=== PATIENT | female | born 1935 | race Caucasian/White ===

== ENCOUNTER 2018-03-01 11:19 | Inpatient (IN) | payer OTHER ==
[~2018-03-01] VITALS: Ht 162.6 cm; Wt 94.5 kg
[~2018-03-01 11:19] MED LIST: ACET-1175 PO; AMOX500C3 PO; BISA10SU3 PR; CALCTAB13 PO; DRGTP75 TD; ENOX1INJ9 SQ; LCTS240 PO; LCTX PO; LISI-725 PO; METH500T PO; MOML PO; MULTTAB PO; NF656 TOP; POLY335040 PO; SENN-65 PO; SODIUM CHLORIDE 0.9% 1000ML 1,000 ML IV SCH; Thyroid PO; [UNRECOGNIZED DRUG - CODE] PO
--- NOTE | 2018-03-01 11:34 | DIAGNOSTIC IMAGING REPORT ---
CT OF THE HEAD WITHOUT CONTRAST CLINICAL HISTORY: Stroke alert. COMPARISON STUDY: No previous studies for comparison. CT DOSE: 537.48 mGy.cm TECHNIQUE: Helical axial images of the head were obtained without IV contrast. Automated exposure control was utilized for the study. A dose lowering technique was utilized adhering to the principles of ALARA. FINDINGS: No acute intracranial hemorrhage, midline shift or mass effect is present. Ventricular system is unremarkable. Basilar cisterns are patent. There are no extra-axial collections. There is equivocal loss of pierson-white differentiation within the right temporal lobe shown on axial image 14. This is probably artifactual. There are no significant calvarial abnormalities. A small air-fluid level within the right sphenoid sinus is noted. Mastoid air cells are clear. IMPRESSION: 1. No acute intracranial hemorrhage or mass effect. 2. Equivocal loss of pierson-white differentiation within the right temporal lobe. This is likely artifactual however an acute infarct could appear similar. Findings discussed with Dr. Thornton at time of dictation. Electronically signed by: Ubaldo Ulrich M.D. 03/01/2018 11:32 AM Dictated Date/Time: 03/01/2018 11:26 AM
[2018-03-01 11:42] LABS: BASO % 0.1 %; BASO ABS # 0.01 K/uL (0-0.2); EOS % 1.9 %; EOS ABS # 0.19 K/uL (0-0.5); HEMATOCRIT 41.2 % (37-47); HEMOGLOBIN 14.5 g/dL (12.0-16.0); IG# 0.03 K/uL (0.00-0.02); LYMPH % 8.9 %; LYMPH ABS # 0.89 K/uL (1.2-3.4); MEAN CELL VOLUME 97.2 fL (80-100); MEAN CORPUSCULAR HEMOGLOBIN 34.2 pg (25-34); MEAN CORPUSCULAR HGB CONC 35.2 g/dl (32-36); MONO % 6.9 %; MONO ABS # 0.69 K/uL (0.11-0.59); NEUT % 81.9 %; NEUT ABS # 8.22 K/uL (1.4-6.5); PLATELET COUNT 196 K/uL (130-400); RED CELL DISTRIBUTION WIDTH CV 13.6 % (11.5-14.5); WHITE BLOOD COUNT 10.03 K/uL (4.8-10.8)
--- NOTE | 2018-03-01 11:47 | EMERGENCY ROOM VISIT NOTE ---
History Report prepared by Navya: Bobby Murphy Under the Supervision of: Dr. Yasmeen Thornton M.D. First contact with patient: 11:16 Stated Complaint: POSS CVA History of Present Illness The patient is an 82 year old female who presents to the Emergency Room with complaints of a mild headache and weakness that began at 0800 this morning, 3.5 hours ago. Per EMS, the patient is currently a resident at [facility] and began to complain of a mild headache this morning at 0800. She then went to her normal therapy session and was not performing her exercises as well as she normally would. The patient had a stroke in January, which is why she is staying at [facility]. Source of History: patient Onset: 3.5 hours ago Position: head Symptom Intensity: mild Quality: other (headache) Associated Symptoms: + weakness Review of Systems See HPI for pertinent positives & negatives. A total of 10 systems reviewed and were otherwise negative. 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 Social History Smoking Status: Never Smoker Smokeless Tobacco Use: No Alcohol Use: none Marital Status: in relationship Housing Status: lives with significant other Occupation Status: retired Current/Historical Medications Scheduled Amitriptyline Hcl (Elavil), 75 MG PO HS Aspirin-Dipyridamole (Aspirin/Dipyridamole 25-200 mg), 1 CAP PO Q12 Atorvastatin (Lipitor), 1 TAB PO HS Docusate Sodium (Docusate Sodium), 1 CAP PO BID Donepezil Hydrochloride (Donepezil Hcl), 10 MG PO QPM Fluticasone Propionate (Nasal) (Flonase Allergy Relief), 2 SPRAYS NA DAILY Latanoprost (Xalatan 0.005% Oph Oliva), 1 DROPS OP HS Levothyroxine Sodium (Levothyroxine Sodium), 1 TAB PO DAILY Lisinopril (Lisinopril), 20 MG DAILY Memantine (Namenda), 10 MG PO BID Multivitamin (Multivitamin), 1 TAB PO DAILY Nystatin (Topical) (Nystatin), 1 APPLN TD BID Pantoprazole (Protonix), 40 MG PO DAILY Polyethylene Glycol 3350 (Miralax), 17 GM PO BID Potassium Chloride (Potassium Chloride Er), 1 CAP PO BID Sennosides-Docusate Sodium (Docusate Sodium/Senna), 1 TAB PO DAILYBL Sertraline (Zoloft), 100 MG PO DAILY Scheduled PRN Acetaminophen (Acetaminophen), 1 TAB PO Q4H PRN for Pain Bisacodyl (Bisacodyl), 10 MG RE DAILY PRN for Constipation Lorazepam (Lorazepam), 1 TAB PO TID PRN for Anxiety Magnesium Hydroxide (Milk Of Magnesia), 30 ML PO DAILY PRN for Constipation Ondansetron Hcl (Zofran), 4 MG PO Q6H PRN for Nausea Sodium Phosphates (Fleet Enema Six Pack), 1 DOSE RE DAILY PRN for Constipation Allergies Coded Allergies: Azithromycin (Unverified Adverse Reaction, Unknown, nausea and vomiting, ) Erythromycin (Unverified Adverse Reaction, Unknown, Vomiting., 03/01/18) Uncoded Allergies: NARCOTIC ANALGESICS (Adverse Reaction, Unknown, nausea and vomiting, ) Physical Exam Vital Signs Date Time Temp Pulse Resp B/P (MAP) Pulse Ox O2 Delivery O2 Flow Rate FiO2 03/01/18 11:53 67 16 138/75 95 Room Air 03/01/18 11:38 130 03/01/18 11:27 37.1 86 18 156/78 94 Room Air 03/01/18 11:27 94 Room Air Physical Exam Vital signs reviewed. General: Well-appearing 82 yo female, in no significant distress. HEENT: No scleral icterus, PERRLA, neck supple. Atraumatic. Cardiovascular: Regular rate and rhythm, no extra sounds. Pulmonary: Clear to auscultation bilaterally, normal work of breathing. Abdomen: Soft, nontender, nondistended, positive bowel sounds. Musculoskeletal: Atraumatic, no peripheral edema. Neurologic: Patient awake alert and oriented x 3, full strength in all 4 extremities. Cranial nerves 2 through 12 grossly intact. There is mild ataxia to the left upper extremity with mild left nasal labial fold flattening. Skin: Warm, dry, no rash mild Medical Decision & Procedures ER Provider Diagnostic Interpretation: Radiology results as stated below per my review and radiologist interpretation: CTA ANGIOGRAPHY OF THE HEAD CLINICAL HISTORY: Stroke alert. COMPARISON STUDY: Head CT March 01, 2018 at 11:24 AM. TECHNIQUE: Helical axial images of the head were obtained following uneventful intravenous administration of 94 cc of Optiray 320. A dose lowering technique was utilized adhering to the principles of ALARA. CT DOSE: 368.80 mGycm FINDINGS: No acute intracranial hemorrhage, midline shift or mass effect is present. No intracranial aneurysm or dissection is identified. There is moderate calcified plaque within the bilateral cavernous and supraclinoid internal carotid arteries with moderate stenosis of the right supraclinoid ICA and mild to moderate stenosis of the left supraclinoid ICA. No abrupt vessel cut off is identified. No intraluminal thrombus is identified. There is moderate stenosis of the distal right middle cerebral artery. Small air-fluid level within the right sphenoid sinus is noted. IMPRESSION: 1. No intracranial aneurysm or abrupt vessel cut off identified. No intraluminal thrombus. 2. Moderate intracranial vascular calcification with multifocal stenoses, as described above. Electronically signed by: Ubaldo Ulrich M.D. 03/01/2018 12:18 PM Dictated Date/Time: 03/01/2018 12:10 PM CHEST ONE VIEW PORTABLE CLINICAL HISTORY: Stroke COMPARISON STUDY: No previous studies for comparison. FINDINGS: Lung volumes are normal. No pneumothorax or pleural effusion is noted. There is no evidence for pulmonary edema. Cardiomediastinal silhouette is unremarkable. A 2.1 cm right suprahilar density is noted. This is likely due to summation artifact. IMPRESSION: 1. No acute cardiopulmonary findings. 2. 2.1 cm right suprahilar density which is artifactual. Nonemergent PA and shallow oblique radiographs of the chest are recommended. Electronically signed by: Ubaldo Ulrich M.D. 03/01/2018 12:00 PM Dictated Date/Time: 03/01/2018 11:[address] OF THE HEAD WITHOUT CONTRAST CLINICAL HISTORY: Stroke alert. COMPARISON STUDY: No previous studies for comparison. CT DOSE: 537.48 mGy.cm TECHNIQUE: Helical axial images of the head were obtained without IV contrast. Automated exposure control was utilized for the study. A dose lowering technique was utilized adhering to the principles of ALARA. FINDINGS: No acute intracranial hemorrhage, midline shift or mass effect is present. Ventricular system is unremarkable. Basilar cisterns are patent. There are no extra-axial collections. There is equivocal loss of pierson-white differentiation within the right temporal lobe shown on axial image 14. This is probably artifactual. There are no significant calvarial abnormalities. A small air-fluid level within the right sphenoid sinus is noted. Mastoid air cells are clear. IMPRESSION: 1. No acute intracranial hemorrhage or mass effect. 2. Equivocal loss of pierson-white differentiation within the right temporal lobe. This is likely artifactual however an acute infarct could appear similar. Findings discussed with Dr. Thornton at time of dictation. Electronically signed by: Ubaldo Ulrich M.D. 03/01/2018 11:32 AM Dictated Date/Time: 03/01/2018 11:26 AM Laboratory Results Test 03/01/18 11:27 03/01/18 11:28 03/01/18 11:32 03/01/18 11:37 RDW Standard Deviation 48.0 fL (36.4-46.3) RDW Coefficient of Variation 13.6 % (11.5-14.5) White Blood Count 10.03 K/uL (4.8-10.8) Red Blood Count 4.24 M/uL (4.2-5.4) Hemoglobin 14.5 g/dL (12.0-16.0) Hematocrit 41.2 % (37-47) Mean Corpuscular Volume 97.2 fL (80-100) Mean Corpuscular Hemoglobin 34.2 pg (25-34) Mean Corpuscular Hemoglobin Concent 35.2 g/dl (32-36) Platelet Count 196 K/uL (130-400) Mean Platelet Volume 9.0 fL (7.4-10.4) Neutrophils (%) (Auto) 81.9 % Lymphocytes (%) (Auto) 8.9 % Monocytes (%) (Auto) 6.9 % Eosinophils (%) (Auto) 1.9 % Basophils (%) (Auto) 0.1 % Neutrophils # (Auto) 8.22 K/uL (1.4-6.5) Lymphocytes # (Auto) 0.89 K/uL (1.2-3.4) Monocytes # (Auto) 0.69 K/uL (0.11-0.59) Eosinophils # (Auto) 0.19 K/uL (0-0.5) Basophils # (Auto) 0.01 K/uL (0-0.2) Prothrombin Time 10.7 SECONDS (9.0-12.0) Prothromb Time International Ratio 1.0 (0.9-1.1) Activated Partial Thromboplast Time 27.3 SECONDS (21.0-31.0) Partial Thromboplastin Ratio 1.1 Estimated Average Glucose 111 mg/dl Hemoglobin A1c 5.5 % (4.5-5.6) Magnesium Level 2.1 mg/dl (1.8-2.4) Total Creatine Kinase 46 U/L (26-192) Creatine Kinase MB 1.1 ng/ml (0.5-3.6) Creatine Kinase MB Ratio 2.4 (0-3.0) Troponin I < 0.015 ng/ml (0-0.045) Bedside Prothrombin Time INR 1.0 (0.9-1.1) Bedside Glucose 83 mg/dl (70-90) Bedside Hemoglobin 14.6 g/dl (12.0-16.0) Bedside Hematocrit 43 % (37-47) Bedside Sodium 133 mEq/L (135-144) Bedside Potassium 4.6 mEq/L (3.3-5.0) Bedside Chloride 94 mEq/L (101-112) Bedside Total CO2 29 mEq/l (24-31) Bedside Blood Urea Nitrogen 26 mg/dl (7-18) Bedside Creatinine 1.2 mg/dl (0.6-1.3) Bedside Glucose (other) 85 mg/dl (70-99) Bedside Ionized Calcium (Deandra) 1.16 mmol/l (1.12-1.32) Test 03/01/18 13:00 Urine Color YELLOW Urine Appearance CLEAR (CLEAR) Urine pH 6.5 (4.5-7.5) Urine Specific [place] 1.029 (1.000-1.030) Urine Protein NEG (NEG) Urine Glucose (UA) NEG (NEG) Urine Ketones NEG (NEG) Urine Occult Blood NEG (NEG) Urine Nitrite NEG (NEG) Urine Bilirubin NEG (NEG) Urine Urobilinogen NEG (NEG) Urine Leukocyte Esterase MODERATE (NEG) Urine WBC (Auto) >30 /hpf (0-5) Urine RBC (Auto) 0-4 /hpf (0-4) Urine Hyaline Casts (Auto) 1-5 /lpf (0-5) Urine Epithelial Cells (Auto) 0-5 /lpf (0-5) Urine Bacteria (Auto) NEG (NEG) Date/Time Source Procedure Growth Status 03/01/18 13:00 Urine,Catheterized Urine Culture - Final Enterococcus Faecalis Complete Laboratory results per my review. Medications Administered Medications (Trade) Dose Ordered Sig/Marcel Route Start Time Stop Time Status Last Admin Dose Admin Sodium Chloride 1,000 ml @ 100 mls/hr Q10H IV 03/01/18 11:17 03/01/18 14:54 DC 03/01/18 11:17 100 MLS/HR Acetaminophen (Tylenol Tab) 1,000 mg NOW STAT PO 03/01/18 12:50 03/01/18 12:51 DC 03/01/18 12:50 1,000 MG ECG Per My Interpretation Indication: weakness Rate (beats per minute): 70 Rhythm: normal sinus Findings: Q waves (Anterior inferior), no acute ischemic change ED Course 1117: Ordered Sodium Chloride 1000 mL @ 100 mL/hr IV. 1126: Past medical records reviewed. The patient was evaluated in room B1. A complete history and physical examination was performed. 1250: Ordered Acetaminophen 1000 mg PO. 1254: I discussed the case with Dr. Korey Corcoran Hospitalist. She will evaluate the patient for further treatment. Medical Decision Differential diagnosis: Etiologies such as metabolic, infection, hypo/hyperglycemia, electrolyte abnormalities, cardiac sources, intracerebral event, toxicologic, neurologic, as well as others were entertained. This pt was evaluated and appeared to be in no distress. IV access was obtained and lab work was drawn. 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 Neuro exam reveals a mild ataxia to the LUE, ? nasolabial fold flattening. IVF were initiated. Records from OSH were obtained. The pt's symptoms are not clearly new today. There is no significant deficit. EKG reveals a NSR. IVF were initiated, pt was given po tylenol for HERCULES. Pt was doing well on exam. There is no evidence fo acute stroke on CT, ? artifact. Pt was d/w the hospitalist service for further management. Medication Reconcilliation Current Medication List: was personally reviewed by me Blood Pressure Screening Patient's blood pressure: Elevated blood pressure Consults Time Called: 1251 Consulting Physician: Dr. Korey Ware Hospitalist Returned Call: [phone] I discussed the case with Dr. Korey Ware Hospitalist. She will evaluate the patient for further treatment. Impression Primary Impression: Stroke-like symptom Scribe Attestation The scribe's documentation has been prepared under my direction and personally reviewed by me in its entirety. I confirm that the note above accurately reflects all work, treatment, procedures, and medical decision making performed by me. Departure Information Dispostion Being Evaluated By Hospitalist Referrals No Doctor, Assigned (PCP)
[2018-03-01 11:52] LABS: ISTAT CREATININE 1.2 mg/dl (0.6-1.3); ISTAT IONIZED CALCIUM 1.16 mmol/l (1.12-1.32); ISTAT POTASSIUM 4.6 mEq/L (3.3-5.0)
[2018-03-01 11:55] LABS: PTT PATIENT 27.3 SECONDS (21.0-31.0)
[2018-03-01 11:59] LABS: BLOOD UREA NITROGEN 22 mg/dl (7-18); CALCIUM 8.9 mg/dl (8.5-10.1); CARBON DIOXIDE 30 mmol/L (21-32); CREATININE 1.29 mg/dl (0.60-1.20); GLUCOSE 79 mg/dl (70-99); POTASSIUM 4.5 mmol/L (3.5-5.1); SODIUM 132 mmol/L (136-145)
[2018-03-01] MEDS ORDERED: OPTIRAY 320 IV PRN (12:00)
--- NOTE | 2018-03-01 12:02 | DIAGNOSTIC IMAGING REPORT ---
CHEST ONE VIEW PORTABLE CLINICAL HISTORY: Stroke COMPARISON STUDY: No previous studies for comparison. FINDINGS: Lung volumes are normal. No pneumothorax or pleural effusion is noted. There is no evidence for pulmonary edema. Cardiomediastinal silhouette is unremarkable. A 2.1 cm right suprahilar density is noted. This is likely due to summation artifact. IMPRESSION: 1. No acute cardiopulmonary findings. 2. 2.1 cm right suprahilar density which is artifactual. Nonemergent PA and shallow oblique radiographs of the chest are recommended. Electronically signed by: Ubaldo Ulrich M.D. 03/01/2018 12:00 PM Dictated Date/Time: 03/01/2018 11:59 AM
[2018-03-01 12:04] LABS: CKMB 1.1 ng/ml (0.5-3.6)
--- NOTE | 2018-03-01 12:20 | DIAGNOSTIC IMAGING REPORT ---
CTA ANGIOGRAPHY OF THE HEAD CLINICAL HISTORY: Stroke alert. COMPARISON STUDY: Head CT March 01, 2018 at 11:24 AM. TECHNIQUE: Helical axial images of the head were obtained following uneventful intravenous administration of 94 cc of Optiray 320. A dose lowering technique was utilized adhering to the principles of ALARA. CT DOSE: 368.80 mGycm FINDINGS: No acute intracranial hemorrhage, midline shift or mass effect is present. No intracranial aneurysm or dissection is identified. There is moderate calcified plaque within the bilateral cavernous and supraclinoid internal carotid arteries with moderate stenosis of the right supraclinoid ICA and mild to moderate stenosis of the left supraclinoid ICA. No abrupt vessel cut off is identified. No intraluminal thrombus is identified. There is moderate stenosis of the distal right middle cerebral artery. Small air-fluid level within the right sphenoid sinus is noted. IMPRESSION: 1. No intracranial aneurysm or abrupt vessel cut off identified. No intraluminal thrombus. 2. Moderate intracranial vascular calcification with multifocal stenoses, as described above. Electronically signed by: Ubaldo Ulrich M.D. 03/01/2018 12:18 PM Dictated Date/Time: 03/01/2018 12:10 PM
[2018-03-01] MEDS ORDERED: ACETAMINOPHEN 500 MG TAB PO STA (12:50)
[2018-03-01] MEDS ORDERED: LEVO25TA5 PO (13:04)
[2018-03-01] MEDS ORDERED: DONE5TAB26 PO (13:04)
[2018-03-01] MEDS ORDERED: AMT50 PO (13:04)
[2018-03-01] MEDS ORDERED: LATA0.5S OP (13:04)
[2018-03-01] MEDS ORDERED: FLVHFA110 INH (13:04)
[2018-03-01] MEDS ORDERED: ASPI1CAP2 PO (13:04)
[2018-03-01] MEDS ORDERED: ATOR-24 PO (13:04)
[2018-03-01] MEDS ORDERED: NMN10 PO (13:04)
[2018-03-01] MEDS ORDERED: MULT-506 PO (13:04)
[2018-03-01] MEDS ORDERED: MELO7.5T5 PO (13:04)
[2018-03-01] MEDS ORDERED: PANT40TA PO (13:04)
[2018-03-01] MEDS ORDERED: LSN20 (13:04)
[2018-03-01] MEDS ORDERED: DOCU100C31 PO (13:04)
[2018-03-01] MEDS ORDERED: ACETAMINOPHEN 325 MG TAB PO PRN (14:00)
[2018-03-01] MEDS ORDERED: ONDANSETRON INJ 2 MG/ML 2 ML VIAL IV PRN (14:00)
[2018-03-01] MEDS ORDERED: PHARMACIST DISCHARGE MED REC CONSULT PRN (14:15)
[2018-03-01] MEDS ORDERED: CLOPIDOGREL BISULFATE 75 MG TAB PO SCH (14:15)
[2018-03-01] MEDS ORDERED: POTA1CAP2 PO (14:29)
[2018-03-01] MEDS ORDERED: ONDA4TAB65 PO (14:29)
[2018-03-01] MEDS ORDERED: SERT-234 PO (14:29)
[2018-03-01] MEDS ORDERED: BISA10SU5 RE (14:29)
[2018-03-01] MEDS ORDERED: NYST100033 TD (14:29)
[2018-03-01] MEDS ORDERED: POLY335019 PO (14:29)
[2018-03-01] MEDS ORDERED: LORA0.5T12 PO (14:29)
[2018-03-01] MEDS ORDERED: MOML PO (14:29)
[2018-03-01] MEDS ORDERED: ACET500T58 PO (14:29)
[2018-03-01] MEDS ORDERED: SODI1ENE RE (14:29)
[2018-03-01] MEDS ORDERED: SENN8.6T36 PO (14:29)
[2018-03-01] MEDS ORDERED: FLUT0.15 (14:31)
[2018-03-01 14:55] VITALS: BP 136/76; PULSE 66; TEMP 36.6; O2SAT 96
[2018-03-01 15:02] VITALS: BP 136/76; PULSE 66; TEMP 36.6; Ht 162.6 cm; Wt 94.5 kg
--- NOTE | 2018-03-01 15:48 | Neurology Consultation ---
Neurology Consultation Date of Consultation: Mar 01, 2018. Attending Physician: Davion Ashraf M.D. Primary Care Physician: Monica XiePBingABing Reason for Consultation: LLE weakness History of Present Illness Source: patient, family (daughter) Elise is an 82 year old female with dementia, depression, anxiety, HTN, stage III CKD, morbid obesity who presented to [facility] with weakness and change in speech and confusion. She lives alone and has aids coming into assist her. She states she was trying to get OOB 02/08/2018 and slid to the floor and couldn't get up. She was taken to [facility] and it was discovered she had a right thalamus stroke. She was started on avonex and was cleared for rehab. She was accepted for acute rehab at [facility] and was doing well and again walking with a walker. Today she was having some difficulty with her therapy and was sent to [facility] for evaluation. Currently she is doing fine her daughter is in the room with her and states she has some word finding difficulty at baseline but she was having some slurring of speech when she had the stroke and left UE/LE weakness. She is pleasant but somewhat confused as to why she is here. denies CP, SOB, abdominal pain, one sided weakness, numbness tingling, N, V, headaches vision changes. Social History Smoking Status: Never smoker Smokeless Tobacco Use: No Allergies Coded Allergies: Azithromycin (Unverified Adverse Reaction, Unknown, nausea and vomiting, ) Erythromycin (Unverified Adverse Reaction, Unknown, Vomiting., 03/01/18) Uncoded Allergies: NARCOTIC ANALGESICS (Adverse Reaction, Unknown, nausea and vomiting, ) Current Inpatient Medications Current Inpatient Medications Medications (Trade) Dose Ordered Sig/Marcel Route Start Time Stop Time Status Last Admin Dose Admin Ioversol (Optiray 320) 100 ml UD PRN IV 03/01/18 12:00 03/05/18 11:59 Heparin Sodium (Porcine) (Heparin Sq 5000 Unit/0.5ml) 5,000 unit Q8 SQ 03/01/18 14:00 03/31/18 13:59 Acetaminophen (Tylenol Tab) 650 mg Q4H PRN PO 03/01/18 14:00 03/31/18 13:59 Ondansetron HCl (Zofran Inj) 4 mg Q6H PRN IV 03/01/18 14:00 03/31/18 13:59 Aspirin (Ecotrin Tab) 81 mg QAM PO 03/02/18 09:00 04/01/18 08:59 Clopidogrel Bisulfate (plAVix TAB) 75 mg QAM PO 03/01/18 14:15 03/31/18 14:14 Miscellaneous Information (Pharmacist Discharge Med Rec Consult) 1 ea UD PRN N/A 03/01/18 14:15 03/31/18 14:14 Amitriptyline HCl (Elavil Tab) 75 mg HS PO 03/01/18 21:00 03/31/18 20:59 Atorvastatin Calcium (Lipitor Tab) 40 mg HS PO 03/01/18 21:00 03/31/18 20:59 Docusate Sodium (coLACE CAP) 100 mg BID PO 03/01/18 21:00 03/31/18 20:59 Donepezil HCl (Aricept Tab) 10 mg QPM PO 03/01/18 21:00 03/31/18 20:59 Levothyroxine Sodium (Synthroid Tab) 25 mcg DAILYBB PO 03/02/18 06:00 04/01/18 05:59 Lisinopril (Zestril Tab) 20 mg DAILY PO 03/02/18 09:00 04/01/18 08:59 Memantine (Namenda Tab) 10 mg BID PO 03/01/18 21:00 03/31/18 20:59 Multivitamins (Multivitamin Tab) 1 tab DAILY PO 03/02/18 09:00 04/01/18 08:59 Nystatin (Mycostatin Powder) 1 appln BID EXT 03/01/18 21:00 03/31/18 20:59 Pantoprazole Sodium (Protonix Tab) 40 mg DAILY PO 03/02/18 09:00 04/01/18 08:59 Senna/Docusate Sodium (Senokot S Tab) 1 tab DAILYBL PO 03/02/18 11:00 04/01/18 10:59 Sertraline HCl (Zoloft Tab) 100 mg DAILY PO 03/02/18 09:00 04/01/18 08:59 Polyethylene (Miralax Powder Packet) 17 gm BID PO 03/01/18 21:00 03/31/18 20:59 Potassium Chloride (Klor-Con M10) 10 meq BID PO 03/01/18 21:00 03/31/18 20:59 Physical Exam Vital Signs (Past 24 Hrs): Date Time Temp Pulse Resp B/P (MAP) Pulse Ox O2 Delivery O2 Flow Rate FiO2 03/01/18 14:55 36.6 66 18 136/76 (96) 96 Room Air 03/01/18 13:30 68 149/76 95 03/01/18 11:53 67 16 138/75 95 Room Air 03/01/18 11:38 130 03/01/18 11:27 37.1 86 18 156/78 94 Room Air 03/01/18 11:27 94 Room Air Physical Exam: Constitutional: appearance nourished, healthy and obese Ears, Nose, Mouth and Throat: mucous membranes moist, no injection and skin normal, eyes normal Cardiovascular: normal S-1 and S-2 and regular rate and rhythm Respiratory: clear to auscultation (CTA) and no rales, rhonchi or wheeze Musculoskeletal: none pitting peripheral edema, Skin: no stigmata of neurocutaneous disease noted and normal and intact Eyes: extraocular muscles intact (EOMI) and pupils equal, round and reactive to light (PERRL) NEUROLOGIC EXAMINATION: Mental status: Alert and interactive Oriented does not know the date, who is president or why she is here Oriented to person Speech dysarthria , can say no ifs ands or buts, can stick out tongue close eye and point to ceiling with right arm Cranial Nerves some nasolabial flattening on the left Reflexes: Deep tendon reflexes were symmetrical and graded 2/5. Plantar responses neutral Sensory: intact to cool and light touch, GT proprioception in tact Coordination: finger to nose with no bi pass, heel to ibrahim not dysmetric Gait/Stance: Posture sitting up in bed Motor: Negative for pronator drift of out stretched arms with eyes closed. 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 deltoids, hand chief procurement officer intrinsics 5/5 bilaterally hip flex plantar flex ext bilaterally 5/5 Laboratory Results Past 24 Hours: 03/01/18 11:27 Red Blood Count 4.24, Mean Corpuscular Volume 97.2, Mean Corpuscular Hemoglobin 34.2, Mean Corpuscular Hemoglobin Concent 35.2, Mean Platelet Volume 9.0, Neutrophils (%) (Auto) 81.9, Lymphocytes (%) (Auto) 8.9, Monocytes (%) (Auto) 6.9, Eosinophils (%) (Auto) 1.9, Basophils (%) (Auto) 0.1, Neutrophils # (Auto) 8.22, Lymphocytes # (Auto) 0.89, Monocytes # (Auto) 0.69, Eosinophils # (Auto) 0.19, Basophils # (Auto) 0.01 03/01/18 11:27 Test 03/01/18 11:27 03/01/18 11:28 03/01/18 11:32 03/01/18 11:37 White Blood Count 10.03 K/uL (4.8-10.8) Red Blood Count 4.24 M/uL (4.2-5.4) Hemoglobin 14.5 g/dL (12.0-16.0) Hematocrit 41.2 % (37-47) Mean Corpuscular Volume 97.2 fL (80-100) Mean Corpuscular Hemoglobin 34.2 pg (25-34) Mean Corpuscular Hemoglobin Concent 35.2 g/dl (32-36) Platelet Count 196 K/uL (130-400) Mean Platelet Volume 9.0 fL (7.4-10.4) Neutrophils (%) (Auto) 81.9 % Lymphocytes (%) (Auto) 8.9 % Monocytes (%) (Auto) 6.9 % Eosinophils (%) (Auto) 1.9 % Basophils (%) (Auto) 0.1 % Neutrophils # (Auto) 8.22 K/uL (1.4-6.5) Lymphocytes # (Auto) 0.89 K/uL (1.2-3.4) Monocytes # (Auto) 0.69 K/uL (0.11-0.59) Eosinophils # (Auto) 0.19 K/uL (0-0.5) Basophils # (Auto) 0.01 K/uL (0-0.2) RDW Standard Deviation 48.0 fL (36.4-46.3) RDW Coefficient of Variation 13.6 % (11.5-14.5) Immature Granulocyte % (Auto) 0.3 % Immature Granulocyte # (Auto) 0.03 K/uL (0.00-0.02) Prothrombin Time 10.7 SECONDS (9.0-12.0) Prothromb Time International Ratio 1.0 (0.9-1.1) Activated Partial Thromboplast Time 27.3 SECONDS (21.0-31.0) Partial Thromboplastin Ratio 1.1 Est Creatinine Clear Calc Drug Dose 39.4 ml/min Estimated GFR () 44.7 Estimated GFR (Non- 38.5 BUN/Creatinine Ratio 17.3 (10-20) Calcium Level 8.9 mg/dl (8.5-10.1) Magnesium Level 2.1 mg/dl (1.8-2.4) Total Creatine Kinase 46 U/L (26-192) Creatine Kinase MB 1.1 ng/ml (0.5-3.6) Creatine Kinase MB Ratio 2.4 (0-3.0) Troponin I < 0.015 ng/ml (0-0.045) Bedside Prothrombin Time INR 1.0 (0.9-1.1) Bedside Glucose 83 mg/dl (70-90) Bedside Hemoglobin 14.6 g/dl (12.0-16.0) Bedside Hematocrit 43 % (37-47) Bedside Sodium 133 mEq/L (135-144) Bedside Potassium 4.6 mEq/L (3.3-5.0) Bedside Chloride 94 mEq/L (101-112) Bedside Total CO2 29 mEq/l (24-31) Anion Gap 15.0 mmol/L (16-25) Bedside Blood Urea Nitrogen 26 mg/dl (7-18) Bedside Creatinine 1.2 mg/dl (0.6-1.3) Bedside Glucose (other) 85 mg/dl (70-99) Bedside Ionized Calcium (Deandra) 1.16 mmol/l (1.12-1.32) Test 03/01/18 13:00 Urine Color YELLOW Urine Appearance CLEAR (CLEAR) Urine pH 6.5 (4.5-7.5) Urine Specific [place] 1.029 (1.000-1.030) Urine Protein NEG (NEG) Urine Glucose (UA) NEG (NEG) Urine Ketones NEG (NEG) Urine Occult Blood NEG (NEG) Urine Nitrite NEG (NEG) Urine Bilirubin NEG (NEG) Urine Urobilinogen NEG (NEG) Urine Leukocyte Esterase MODERATE (NEG) Urine WBC (Auto) >30 /hpf (0-5) Urine RBC (Auto) 0-4 /hpf (0-4) Urine Hyaline Casts (Auto) 1-5 /lpf (0-5) Urine Epithelial Cells (Auto) 0-5 /lpf (0-5) Urine Bacteria (Auto) NEG (NEG) Imaging CT head- . No acute intracranial hemorrhage or mass effect. Equivocal loss of pierson-white differentiation within the right temporal lobe. This is likely artifactual however an acute infarct could appear similar. Impression 82 year old female right thalamic stroke at [facility] with new weakness Plan 1. MRI combo for better definition of new stroke symptoms 2. PT/OT for discharge needs 3. HTN, DL, DM optimize with consideration of age 4. carotid and TTE done at [facility] 5. fall precautions 6. baseline dementia will need close observation 7. care mgt will need to intervene with safe discharge 8. stop aggrenox and start plavix 75 mg and aspirin 81 mg daily, recommend dual therapy for 3 months and then stop aspirin and continue plavix for a lifetime. neurology in 2-3 weeks after discharge from rehab or hospital Dr Davion Celaya PAC schedule Patient seen and examined images reviewed this is a woman with dementia whose mental status is colored by this and apparently had an acute right thalamic infarction in february that may hav produced a left hemisyndrome and cognitive worsening and is on aggrenox Had a headache and malaise today and may have had worsening of the left sided weakness and ct imaging is vague but there may be a right tempral infarct Exam not helpful as she is confused and I find minimal if any weakness on the left We are recommending an mri to clear the air diagnostically and stop the aggrenox as the headache could be inpart due to the persantine component and go with plavix and asa we will follow up imaging and clinical state tomorrow Davion Mathews MD
[2018-03-01 16:03] VITALS: BP 128/72; PULSE 66; TEMP 36.6; O2SAT 96
--- NOTE | 2018-03-01 16:58 | History and Physical ---
History & Physical Date & Time of Service: Mar 01, 2018 ~ 13:30 Chief Complaint: Left-sided weakness Primary Care Physician: Monica XiePBingA. History of Present Illness 82-year-old female who presents the ED with left-sided weakness and speech difficulties. Patient was admitted to [facility] 02/08 through 02/10 after she had slid out of bed onto the floor. While admitted she was found to have an acute right thalamic infarct. Patient was started on Aggrenox and discharged to [facility] for further rehab. Patient reports she has been doing well since at [facility]. She feels that yesterday her left-sided weakness was little worse than normal. This morning whenever she woke up she felt like she was in her usual state of health. However during therapy the therapist noted that she was having some more difficulty with her left side and her speech was more garbled than it had been. She was also complaining of a frontal headache. Patient was sent to the ER for further evaluation. Patient denies any other associated symptoms. No chest pain or shortness of breath. She denies lightheadedness, dizziness, diaphoresis, or syncopal events. No fevers or chills. She denies abdominal pain, nausea, vomiting, diarrhea. No urinary symptoms. In the ED, patient head CT is negative for acute findings. Labs are unremarkable. Patient was given 1 L IVF and Tylenol. Past Medical/Surgical History Medical Problems: (1) Anxiety Status: Chronic (2) CKD (chronic kidney disease), stage III Status: Chronic (3) Dementia Status: Chronic (4) Depression Status: Chronic (5) Diastolic dysfunction Status: Chronic (6) GERD (gastroesophageal reflux disease) Status: Chronic (7) Hyperlipidemia Status: Chronic (8) Hypertension Status: Chronic (9) Hypothyroidism Status: Chronic (10) Thalamic infarction Status: Chronic Surgical Problems: (1) H/O dilation and curettage Status: Chronic (2) H/O ovarian cystectomy Status: Chronic (3) H/O tubal ligation Status: Chronic (4) History of carpal tunnel surgery Status: Chronic (5) History of cataract surgery Status: Chronic (6) History of hysterectomy Status: Chronic (7) History of tonsillectomy and adenoidectomy Status: Chronic (8) Hx of appendectomy Status: Chronic (9) S/P lumbar spinal fusion Status: Chronic Family History Noncontributory secondary to patient's advanced age Social History Smoking Status: Never Smoker Smokeless Tobacco Use: No Immunizations History of Influenza Vaccine: Yes Influenza Vaccine Date: Aug 05, 2017 History of Tetanus Vaccine?: Yes Tetanus Immunization Date: Feb 04, 1960 History of Pneumococcal: Yes Pneumococcal Date: Aug 03, 2016 Allergies Coded Allergies: Azithromycin (Unverified Adverse Reaction, Unknown, nausea and vomiting, ) Erythromycin (Unverified Adverse Reaction, Unknown, Vomiting., 03/01/18) Uncoded Allergies: NARCOTIC ANALGESICS (Adverse Reaction, Unknown, nausea and vomiting, ) Home Medications Scheduled Amitriptyline Hcl (Elavil), 75 MG PO HS Aspirin-Dipyridamole (Aspirin/Dipyridamole 25-200 mg), 1 CAP PO Q12 Atorvastatin (Lipitor), 1 TAB PO HS Docusate Sodium (Docusate Sodium), 1 CAP PO BID Donepezil Hydrochloride (Donepezil Hcl), 10 MG PO QPM Fluticasone Propionate (Nasal) (Flonase Allergy Relief), 2 SPRAYS NA DAILY Latanoprost (Xalatan 0.005% Oph Oliva), 1 DROPS OP HS Levothyroxine Sodium (Levothyroxine Sodium), 1 TAB PO DAILY Lisinopril (Lisinopril), 20 MG DAILY Memantine (Namenda), 10 MG PO BID Multivitamin (Multivitamin), 1 TAB PO DAILY Nystatin (Topical) (Nystatin), 1 APPLN TD BID Pantoprazole (Protonix), 40 MG PO DAILY Polyethylene Glycol 3350 (Miralax), 17 GM PO BID Potassium Chloride (Potassium Chloride Er), 1 CAP PO BID Sennosides-Docusate Sodium (Docusate Sodium/Senna), 1 TAB PO DAILYBL Sertraline (Zoloft), 100 MG PO DAILY Scheduled PRN Acetaminophen (Acetaminophen), 1 TAB PO Q4H PRN for Pain Bisacodyl (Bisacodyl), 10 MG RE DAILY PRN for Constipation Lorazepam (Lorazepam), 1 TAB PO TID PRN for Anxiety Magnesium Hydroxide (Milk Of Magnesia), 30 ML PO DAILY PRN for Constipation Ondansetron Hcl (Zofran), 4 MG PO Q6H PRN for Nausea Sodium Phosphates (Fleet Enema Six Pack), 1 DOSE RE DAILY PRN for Constipation Review of Systems ROS per HPI, all other systems reviewed and negative Physical Exam Vital Signs Date Time Temp Pulse Resp B/P (MAP) Pulse Ox O2 Delivery O2 Flow Rate FiO2 03/01/18 14:55 36.6 66 18 136/76 (96) 96 Room Air 03/01/18 13:30 68 149/76 95 03/01/18 11:53 67 16 138/75 95 Room Air 03/01/18 11:38 130 03/01/18 11:27 37.1 86 18 156/78 94 Room Air 03/01/18 11:27 94 Room Air General Appearance: WD/WN, no apparent distress Head: normocephalic, atraumatic Eyes: normal inspection, PERRL, EOMI, sclerae normal ENT: hearing grossly normal, + pertinent finding (Mucous membranes moist) Neck: supple, no JVD, trachea midline Respiratory/Chest: lungs clear, normal breath sounds, no respiratory distress Cardiovascular: regular rate, rhythm, no edema, normal peripheral pulses Abdomen/GI: normal bowel sounds, non tender, soft, no organomegaly Extremities/Musculoskelatal: normal inspection, no calf tenderness, normal capillary refill Neurologic/Psych: alert, normal mood/affect, oriented x 3, + pertinent finding (Mild dysarthria, mild left facial droop with nasolabial flattening, strength strong and equal bilateral upper and lower extremities, finger to nose intact bilateral upper extremities, no pronator drift) Skin: normal color, warm/dry Diagnostics Laboratory Results Results Past 24 Hours Test 03/01/18 11:27 03/01/18 11:28 03/01/18 11:32 03/01/18 11:37 Range/Units White Blood Count 10.03 4.8-10.8 K/uL Red Blood Count 4.24 4.2-5.4 M/uL Hemoglobin 14.5 12.0-16.0 g/dL Hematocrit 41.2 37-47 % Mean Corpuscular Volume 97.2 80-100 fL Mean Corpuscular Hemoglobin 34.2 25-34 pg Mean Corpuscular Hemoglobin Concent 35.2 32-36 g/dl Platelet Count 196 130-400 K/uL Mean Platelet Volume 9.0 7.4-10.4 fL Neutrophils (%) (Auto) 81.9 % Lymphocytes (%) (Auto) 8.9 % Monocytes (%) (Auto) 6.9 % Eosinophils (%) (Auto) 1.9 % Basophils (%) (Auto) 0.1 % Neutrophils # (Auto) 8.22 1.4-6.5 K/uL Lymphocytes # (Auto) 0.89 1.2-3.4 K/uL Monocytes # (Auto) 0.69 0.11-0.59 K/uL Eosinophils # (Auto) 0.19 0-0.5 K/uL Basophils # (Auto) 0.01 0-0.2 K/uL RDW Standard Deviation 48.0 36.4-46.3 fL RDW Coefficient of Variation 13.6 11.5-14.5 % Immature Granulocyte % (Auto) 0.3 % Immature Granulocyte # (Auto) 0.03 0.00-0.02 K/uL Prothrombin Time 10.7 9.0-12.0 SECONDS Prothromb Time International Ratio 1.0 0.9-1.1 Activated Partial Thromboplast Time 27.3 21.0-31.0 SECONDS Partial Thromboplastin Ratio 1.1 Sodium Level 132 136-145 mmol/L Potassium Level 4.5 3.5-5.1 mmol/L Chloride Level 99 98-107 mmol/L Carbon Dioxide Level 30 21-32 mmol/L Anion Gap 4.0 15.0 16-25 mmol/L Blood Urea Nitrogen 22 7-18 mg/dl Creatinine 1.29 0.60-1.20 mg/dl Est Creatinine Clear Calc Drug Dose 39.4 ml/min Estimated GFR () 44.7 Estimated GFR (Non- 38.5 BUN/Creatinine Ratio 17.3 10-20 Random Glucose 79 70-99 mg/dl Calcium Level 8.9 8.5-10.1 mg/dl Magnesium Level 2.1 1.8-2.4 mg/dl Total Creatine Kinase 46 26-192 U/L Creatine Kinase MB 1.1 0.5-3.6 ng/ml Creatine Kinase MB Ratio 2.4 0-3.0 Troponin I < 0.015 0-0.045 ng/ml Bedside Prothrombin Time INR 1.0 0.9-1.1 Bedside Glucose 83 70-90 mg/dl Bedside Hemoglobin 14.6 12.0-16.0 g/dl Bedside Hematocrit 43 37-47 % Bedside Sodium 133 135-144 mEq/L Bedside Potassium 4.6 3.3-5.0 mEq/L Bedside Chloride 94 101-112 mEq/L Bedside Total CO2 29 24-31 mEq/l Bedside Blood Urea Nitrogen 26 7-18 mg/dl Bedside Creatinine 1.2 0.6-1.3 mg/dl Bedside Glucose (other) 85 70-99 mg/dl Bedside Ionized Calcium (Deandra) 1.16 1.12-1.32 mmol/l Test 03/01/18 13:00 Range/Units Urine Color YELLOW Urine Appearance CLEAR CLEAR Urine pH 6.5 4.5-7.5 Urine Specific [place] 1.029 1.000-1.030 Urine Protein NEG NEG Urine Glucose (UA) NEG NEG Urine Ketones NEG NEG Urine Occult Blood NEG NEG Urine Nitrite NEG NEG Urine Bilirubin NEG NEG Urine Urobilinogen NEG NEG Urine Leukocyte Esterase MODERATE NEG Urine WBC (Auto) >30 0-5 /hpf Urine RBC (Auto) 0-4 0-4 /hpf Urine Hyaline Casts (Auto) 1-5 0-5 /lpf Urine Epithelial Cells (Auto) 0-5 0-5 /lpf Urine Bacteria (Auto) NEG NEG Microbiology Results 03/01/18 Urine Culture, Received Pending Diagnostic Radiology HEAD CT IMPRESSION: 1. No acute intracranial hemorrhage or mass effect. 2. Equivocal loss of pierson-white differentiation within the right temporal lobe. This is likely artifactual however an acute infarct could appear similar. Findings discussed with Dr. Thornton at time of dictation. CXR IMPRESSION: 1. No acute cardiopulmonary findings. 2. 2.1 cm right suprahilar density which is artifactual. Nonemergent PA and shallow oblique radiographs of the chest are recommended. CTA HEAD IMPRESSION: 1. No intracranial aneurysm or abrupt vessel cut off identified. No intraluminal thrombus. 2. Moderate intracranial vascular calcification with multifocal stenoses, as described above. Impression Assessment and Plan LEFT-SIDED WEAKNESS, DYSARTHRIA HISTORY OF RECENT RIGHT THALAMIC CVA -Admit to telemetry -Patient presenting from [facility]; recently admitted there after admission to [facility] 02/08-02/10 for acute right thalamic CVA, patient was started on Aggrenox at the time of discharge -While at therapy today patient had a worsening of her left-sided weakness and dysarthria; seems to be improving now -Head CT in the ED negative for acute findings -Case discussed with Tiff Celaya PA-C from neurology -Will discontinue Aggrenox and start aspirin and Plavix; continue statin -Repeat brain MRI -Echocardiogram performed at [facility] unremarkable; carotid Dopplers demonstrated less than 50% stenosis bilaterally -Noted the patient had a hypercoagulable workup done at [facility], found to have a mildly low protein S, discussed with Dr. Brewer from hematology who advised this is not clinically significant -Neurochecks -PT/OT, speech eval HYPERTENSION -BP controlled, continue lisinopril CXR ABNORMAL -2.1 cm right suprahilar density -Will obtain PA for follow-up ANXIETY, DEPRESSION -Continue amitriptyline, sertraline DEMENTIA -Continue donepezil and memantine HYPOTHYROIDISM -Continue levothyroxine GERD -Continue PPI DVT PROPHYLAXIS -SQ heparin CODE STATUS -Patient is a DNR as per my discussion with her and her daughter who is the bedside. DISPOSITION -In my clinical judgment this beneficiary meets acute admission criteria, established by [facility], that includes being hospitalized through two midnights. -PT/OT, case management consult; expect DC back to [facility] once medically stable Attending addendum: This is a 82-year-old female with recent history of right thalamic CVA presented from rehab [facility] with a complaint of worsening left-sided weakness dysarthria Symptoms resolved after arrival to ED CT head without contrast shows negative for acute CVA MRI of brain pending Neurology consulted Admit to telemetry PT OT Kayleigh De Dios MD Resuscitation Status VTE Prophylaxis Will order VTE Prophylaxis: Yes
[2018-03-01] MEDS: HEPARIN SOD 5000 UNIT/0.5 ML CARP SQ SCH ×2 (17:24→21:50)
--- NOTE | 2018-03-01 17:43 | DIAGNOSTIC IMAGING REPORT ---
CHEST 2 VIEWS ROUTINE CLINICAL HISTORY: Abnormal chest x-ray. Possible right suprahilar mass COMPARISON STUDY: 03/01/2018 FINDINGS: The cardiac and mediastinal contours remain stable. There is a persistent right suprahilar density, likely related to a summation of the right fifth posterior rib and right first costochondral junction. There is no focal pulmonary consolidation. As no failure. There are no pleural effusions. There is bridging calcification of the anterior longitudinal ligament.[ IMPRESSION: No significant change from the prior study. A right suprahilar density is again visualized, likely are presenting a bony summation. As was previously requested, a follow-up study with shallow PA obliques might be of benefit. Electronically signed by: Walker Badillo M.D. 03/01/2018 5:42 PM Dictated Date/Time: 03/01/2018 5:39 PM
[2018-03-01] MEDS ORDERED: TRAMADOL HCL 50 MG TAB PO ONE (17:45)
--- NOTE | 2018-03-01 19:18 | DIAGNOSTIC IMAGING REPORT ---
Oblique views of the chest (2 views) CLINICAL HISTORY: Right suprahilar density COMPARISON STUDY: 03/01/2018 FINDINGS: The previously identified right suprahilar density, is felt to represent calcification at the level of the first costochondral junction. No parenchymal masses are visualized. IMPRESSION: 1. No parenchymal masses identified 2. The previously identified right suprahilar opacity is felt to represent calcification within the right first costochondral junction Electronically signed by: Walker Badillo M.D. 03/01/2018 7:16 PM Dictated Date/Time: 03/01/2018 7:15 PM
[2018-03-01 19:26] VITALS: BP 126/77; PULSE 70; TEMP 36.8; O2SAT 92
[2018-03-01] MEDS: ATORVASTATIN 40 MG TAB PO SCH (19:56)
[2018-03-01] MEDS: NYSTATIN POWDER 15GM BTL EXT SCH (19:56)
[2018-03-01] MEDS: AMITRIPTYLINE HCL 50 MG TAB PO SCH (19:57)
[2018-03-01] MEDS: MEMANTINE 10 MG TAB PO SCH (19:57)
[2018-03-01] MEDS: POTASSIUM CHLORIDE 10 MEQ TABCR PO SCH (19:57)
[2018-03-01] MEDS: DOCUSATE SODIUM 100 MG CAP PO SCH (19:57)
[2018-03-01] MEDS: POLYETHYLENE (MIRALAX) 17 GM PACK PO SCH (19:58)
[2018-03-01] MEDS: DONEPEZIL HCL 10 MG TAB PO SCH (19:58)
[2018-03-01] MEDS ORDERED: LORAZEPAM 2 MG/ML 1 ML VIAL IV PRN (20:00)
[2018-03-01] MEDS ORDERED: GADAVIST IV PRN (21:00)
--- NOTE | 2018-03-01 21:16 | DIAGNOSTIC IMAGING REPORT ---
MRI OF THE BRAIN WITHOUT AND WITH IV CONTRAST CLINICAL HISTORY: Stroke LEFT-SIDED WEAKNESS. SLURRED SPEECH. CONFUSION. COMPARISON STUDY: CT scan dated 03/01/2018 TECHNIQUE: MRI of the brain was performed from the vertex to the skull base utilizing various T1 and T2 weighted sequences. Following the IV administration of 10 mL of Gadavist contrast, additional enhanced images were obtained. FINDINGS: Sagittal T1, axial diffusion, proton density and T2 weighted axial, coronal FLAIR, and pre and post axial T1-weighted images were acquired. These were supplemented with post gadolinium coronal T1 weighted images. No intra or extra-axial mass lesions are visualized. An equivocal focus of intracanalicular enhancement within the right internal auditory canal may represent partial volume averaging. There is a focus of increased signal on diffusion-weighted imaging involving the right lateral thalamus/posterior limb of the internal capsule. This does not definitively show low signal on ADC map. This demonstrates increased T2 signal. There is mild associated increased T1 signal, likely secondary to petechial hemorrhage. There is mild post gadolinium enhancement. A subacute infarct is favored. A 2 month follow-up study is recommended There is no evidence of ventricular dilatation. Proton density T2-weighted and FLAIR images reveal scattered foci of increased T2 signal within the white matter, likely on a small vessel basis. There are no abnormal flow voids. There is mild enhancement in the region of the right lateral thalamic signal abnormality. A subacute infarct is suspected. There is an equivocal focus of enhancement within the right internal auditory canal. It is conceivable this represents partial volume averaging artifact. This can be reevaluated at the time of the patient's follow-up MRI, at which point in time thin sections through the IACs should be obtained IMPRESSION: 1. Small lesion involving the right lateral thalamus/posterior limb of the right internal capsule. This demonstrates increased T2 signal, increased signal on diffusion-weighted imaging, as well as increased T1 signal. There is a linear postcontrast enhancement. A subacute infarct with minimal hemorrhage is favored. A 2 month follow-up MRI is recommended. 2. 3 mm focus of enhancement within the right internal auditory canal versus partial volume averaging. This can be reevaluated on the patient's follow-up study, with thin sections recommended through the IACs. Electronically signed by: Walker Badillo M.D. 03/01/2018 9:15 PM Dictated Date/Time: 03/01/2018 9:07 PM
[2018-03-01 23:44] VITALS: BP 112/59; PULSE 70; TEMP 36.7; O2SAT 92
[2018-03-02 03:22] VITALS: BP 110/68; PULSE 70; TEMP 36.6; O2SAT 93
[2018-03-02 05:50] LABS: BASO % 0.1 %; BASO ABS # 0.01 K/uL (0-0.2); EOS % 2.4 %; EOS ABS # 0.24 K/uL (0-0.5); HEMATOCRIT 38.2 % (37-47); HEMOGLOBIN 13.2 g/dL (12.0-16.0); IG# 0.03 K/uL (0.00-0.02); LYMPH % 11.5 %; LYMPH ABS # 1.15 K/uL (1.2-3.4); MEAN CELL VOLUME 97.2 fL (80-100); MEAN CORPUSCULAR HEMOGLOBIN 33.6 pg (25-34); MEAN CORPUSCULAR HGB CONC 34.6 g/dl (32-36); MONO % 6.1 %; MONO ABS # 0.61 K/uL (0.11-0.59); NEUT % 79.6 %; NEUT ABS # 7.92 K/uL (1.4-6.5); PLATELET COUNT 176 K/uL (130-400); WHITE BLOOD COUNT 9.96 K/uL (4.8-10.8)
[2018-03-02] MEDS: LEVOTHYROXINE 25 MCG TAB PO SCH (06:21)
[2018-03-02] MEDS: HEPARIN SOD 5000 UNIT/0.5 ML CARP SQ SCH (06:22)
[2018-03-02 06:25] LABS: CALCIUM 8.6 mg/dl (8.5-10.1); CREATININE 1.37 mg/dl (0.60-1.20)
[2018-03-02 06:35] LABS: HEMOGLOBIN A1C 5.5 % (4.5-5.6)
[2018-03-02 07:35] VITALS: BP 114/67; PULSE 73; TEMP 36.9; O2SAT 96
[2018-03-02] MEDS: POLYETHYLENE (MIRALAX) 17 GM PACK PO SCH ×2 (07:46→21:40)
[2018-03-02] MEDS: MULTIVITAMIN TAB PO SCH (07:46)
[2018-03-02] MEDS: SERTRALINE HCL 100 MG TAB PO SCH (07:46)
[2018-03-02] MEDS: NYSTATIN POWDER 15GM BTL EXT SCH ×2 (07:46→21:36)
[2018-03-02] MEDS: PANTOprazole SOD 40 MG TAB PO SCH (07:47)
[2018-03-02] MEDS: MEMANTINE 10 MG TAB PO SCH ×2 (07:47→21:40)
[2018-03-02] MEDS: DOCUSATE SODIUM 100 MG CAP PO SCH ×2 (07:47→21:38)
[2018-03-02] MEDS: POTASSIUM CHLORIDE 10 MEQ TABCR PO SCH ×2 (07:47→21:37)
[2018-03-02] MEDS ORDERED: ASPIRIN 81 MG ECTAB PO SCH (09:00)
[2018-03-02] MEDS ORDERED: LISINOPRIL 20 MG TAB PO SCH (09:00)
[2018-03-02] MEDS: DOCUSATE SODIUM/SENNA 50/8.6MG TAB PO SCH (11:17)
[2018-03-02 12:00] VITALS: BP 121/68; PULSE 74; TEMP 36.8; O2SAT 97
--- NOTE | 2018-03-02 14:51 | Neurology Progress Notes ---
Neurology Progress Note Date of Service Mar 02, 2018. Viktoria Olivares is an 82 year old female with dementia, depression, anxiety, HTN, stage III CKD, morbid obesity who presented to [facility] with weakness and change in speech and confusion. She lives alone and has aids coming into assist her. She states she was trying to get OOB 02/08/2018 and slid to the floor and couldn't get up. She was taken to [facility] and it was discovered she had a right thalamus stroke. She was started on avonex and was cleared for rehab. She was accepted for acute rehab at [facility] and was doing well and again walking with a walker. Today she was having some difficulty with her therapy and was sent to [facility] for evaluation. Currently she is doing fine her daughter is in the room with her and states she has some word finding difficulty at baseline but she was having some slurring of speech when she had the stroke and left UE/LE weakness. She is pleasant and less confused than yesterday. She is still having issues with standing and left LE weakness denies CP, SOB, abdominal pain, one sided weakness, numbness tingling, N, V, headaches vision changes. Objective Date Time Temp Pulse Resp B/P (MAP) Pulse Ox O2 Delivery O2 Flow Rate FiO2 03/02/18 12:00 36.8 74 18 121/68 (85) 97 03/02/18 12:00 Room Air 03/02/18 08:00 Room Air 03/02/18 07:35 36.9 73 18 114/67 (83) 96 03/02/18 04:00 Room Air 03/02/18 03:22 36.6 70 18 110/68 (82) 93 Room Air 03/01/18 23:59 Room Air 03/01/18 23:44 36.7 70 18 112/59 (76) 92 Room Air 03/01/18 20:00 Room Air 03/01/18 19:26 36.8 70 18 126/77 (93) 92 Room Air 03/01/18 16:03 36.6 66 18 128/72 (90) 96 Room Air 03/01/18 15:02 36.6 66 18 136/76 Room Air 03/01/18 14:55 36.6 66 18 136/76 (96) 96 Room Air Last 24 Hours Test 03/02/18 05:28 03/02/18 07:01 White Blood Count 9.96 K/uL Red Blood Count 3.93 M/uL Hemoglobin 13.2 g/dL Hematocrit 38.2 % Mean Corpuscular Volume 97.2 fL Mean Corpuscular Hemoglobin 33.6 pg Mean Corpuscular Hemoglobin Concent 34.6 g/dl Platelet Count 176 K/uL Neutrophils (%) (Auto) 79.6 % Lymphocytes (%) (Auto) 11.5 % Monocytes (%) (Auto) 6.1 % Eosinophils (%) (Auto) 2.4 % Basophils (%) (Auto) 0.1 % Neutrophils # (Auto) 7.92 K/uL Lymphocytes # (Auto) 1.15 K/uL Monocytes # (Auto) 0.61 K/uL Eosinophils # (Auto) 0.24 K/uL Basophils # (Auto) 0.01 K/uL Immature Granulocyte % (Auto) 0.3 % Immature Granulocyte # (Auto) 0.03 K/uL Sodium Level 130 mmol/L Potassium Level mmol/L 4.1 mmol/L Chloride Level 98 mmol/L Carbon Dioxide Level 30 mmol/L Anion Gap 2.0 mmol/L Blood Urea Nitrogen 23 mg/dl Creatinine 1.37 mg/dl Est Creatinine Clear Calc Drug Dose 35.4 ml/min Estimated GFR () 41.5 Estimated GFR (Non- 35.8 BUN/Creatinine Ratio 16.8 Random Glucose 80 mg/dl Calcium Level 8.6 mg/dl Triglycerides Level 68 mg/dl Cholesterol Level 80 mg/dl HDL Cholesterol 49 mg/dl LDL Cholesterol, Calculated 17 mg/dl VLDL Cholesterol, Calculated 14 mg/dl Cholesterol/HDL Ratio 1.6 Imaging: MRI with and without contrast -Small lesion involving the right lateral thalamus /posterior limb of the right internal capsule. This demonstrates increased T2 signal, increased signal on diffusion-weighted imaging, as well as increased T1 signal. There is a linear postcontrast enhancement. A subacute infarct with minimal hemorrhage is favored. A 2 month follow-up MRI is recommended. 2. 3 mm focus of enhancement within the right internal auditory canal versus partial volume averaging. This can be reevaluated on the patient's follow-up study, with thin sections recommended through the IACs. Exam: Physical Exam: Constitutional: appearance nourished, healthy and normal Ears, Nose, Mouth and Throat: mucous membranes moist, no injection and skin normal, eyes normal Cardiovascular: normal S-1 and S-2 and regular rate and rhythm Respiratory: clear to auscultation (CTA) and no rales, rhonchi or wheeze Musculoskeletal: no peripheral edema and good distal pulses Skin: no stigmata of neurocutaneous disease noted and normal and intact Eyes: extraocular muscles intact (EOMI) and pupils equal, round and reactive to light (PERRL) NEUROLOGIC EXAMINATION: Mental status: Alert and interactive Oriented to 2018, hospital, daughter at bedside and remembering grandchilds names which she was confused about yesterday Oriented to person Speech dysarthric with some words Cranial Nerves smile eye brow raise symmetric Reflexes: Deep tendon reflexes were symmetrical and graded 2/5. Plantar responses were flexor. Sensory: light or cool touch Coordination: finger to nose with no bi pass Gait/Stance: Posture lying in bed Motor: Negative for pronator drift of out stretched arms with eyes closed. 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 5/5 bilaterally, hip flex patellar/plantar flex ext 5/5 bilaterally Current Inpatient Medications Medications (Trade) Dose Ordered Sig/Marcel Route Start Time Stop Time Status Last Admin Dose Admin Ioversol (Optiray 320) 100 ml UD PRN IV 03/01/18 12:00 03/05/18 11:59 Acetaminophen (Tylenol Tab) 650 mg Q4H PRN PO 03/01/18 14:00 03/31/18 13:59 03/02/18 00:46 650 MG Ondansetron HCl (Zofran Inj) 4 mg Q6H PRN IV 03/01/18 14:00 03/31/18 13:59 Miscellaneous Information (Pharmacist Discharge Med Rec Consult) 1 ea UD PRN N/A 03/01/18 14:15 03/31/18 14:14 Amitriptyline HCl (Elavil Tab) 75 mg HS PO 03/01/18 21:00 03/31/18 20:59 03/01/18 19:57 75 MG Atorvastatin Calcium (Lipitor Tab) 40 mg HS PO 03/01/18 21:00 03/31/18 20:59 03/01/18 19:56 40 MG Docusate Sodium (coLACE CAP) 100 mg BID PO 03/01/18 21:00 03/31/18 20:59 03/02/18 07:47 100 MG Donepezil HCl (Aricept Tab) 10 mg QPM PO 03/01/18 21:00 03/31/18 20:59 03/01/18 19:58 10 MG Levothyroxine Sodium (Synthroid Tab) 25 mcg DAILYBB PO 03/02/18 06:00 04/01/18 05:59 03/02/18 06:21 25 MCG Lisinopril (Zestril Tab) 20 mg DAILY PO 03/02/18 09:00 04/01/18 08:59 03/02/18 07:47 20 MG Memantine (Namenda Tab) 10 mg BID PO 03/01/18 21:00 03/31/18 20:59 03/02/18 07:47 10 MG Multivitamins (Multivitamin Tab) 1 tab DAILY PO 03/02/18 09:00 04/01/18 08:59 03/02/18 07:46 1 TAB Nystatin (Mycostatin Powder) 1 appln BID EXT 03/01/18 21:00 03/31/18 20:59 03/02/18 07:46 1 APPLN Pantoprazole Sodium (Protonix Tab) 40 mg DAILY PO 03/02/18 09:00 04/01/18 08:59 03/02/18 07:47 40 MG Senna/Docusate Sodium (Senokot S Tab) 1 tab DAILYBL PO 03/02/18 11:00 04/01/18 10:59 03/02/18 11:17 1 TAB Sertraline HCl (Zoloft Tab) 100 mg DAILY PO 03/02/18 09:00 04/01/18 08:59 03/02/18 07:46 100 MG Polyethylene (Miralax Powder Packet) 17 gm BID PO 03/01/18 21:00 03/31/18 20:59 03/02/18 07:46 17 GM Potassium Chloride (Klor-Con M10) 10 meq BID PO 03/01/18 21:00 03/31/18 20:59 03/02/18 07:47 10 MEQ Gadobutrol (Gadavist) 10 mmol UD PRN IV 03/01/18 21:00 03/05/18 20:59 Impression 82 year old female right thalamic stroke at [facility] with new weakness Plan 1. MRI combo for better definition of new stroke symptoms- finding of expected evolution of stroke compared to MRI done at [facility] 2. PT/OT for discharge needs will need rehab prior to return home 3. HTN, DL, DM optimize with consideration of age 4. carotid and TTE done at [facility] 5. fall precautions 6. baseline dementia will need close observation improved mentation today 7. care mgt will need to intervene with safe discharge 8. stop aggrenox and start plavix 75 mg and aspirin 81 mg daily, recommend dual therapy for 3 months and then stop aspirin and continue plavix for a lifetime. 9. currently antiplatlet being held due to radiology report from MRI- may restart aspirin 81 mg and plavix 75 mg prior to discharge. neurology in 2-3 weeks after discharge from rehab or hospital Dr Davion Matthew [place] PAC schedule I have seen and discussed above patient with Dr Davion Mathews, neurology Reviewed mri may show a small extension of the old infarct at most and the history suggests that she was declining in terms of her left leg function for the past few days otherwise we have no clear evidence for a new event and the reported small petechial bleed is nothing more than a normal evolutionary process in a recent cva and is not an explanation for her worsening continue asa and plavix she will likely need more rehab efforts at [facility] following discharge Davion Mathews MD
[2018-03-02 15:57] VITALS: BP 124/70; PULSE 68; TEMP 36.7; O2SAT 92
[2018-03-02 19:45] VITALS: BP 112/70; PULSE 72; TEMP 36.8; O2SAT 93
[2018-03-02] MEDS ORDERED: CLOPIDOGREL BISULFATE 75 MG TAB PO ONE (20:24)
[2018-03-02] MEDS ORDERED: ASPIRIN 81 MG ECTAB PO ONE (20:24)
--- NOTE | 2018-03-02 20:26 | Progress Note ---
Medicine Progress Note Date & Time of Visit: Mar 02, 2018 at 16:10 . Subjective CC: Follow-up visit for recent stroke with worsening symptoms. HPI: Suffered right thalamic stroke on 02/08/18; hospitalized at [facility]. Transfer to [facility] for rehabilitation. Doing well until yesterday when she developed worsening left-sided weakness. Refer to ED and admitted for further evaluation and management. Experiencing a frontal headache. Left-sided weakness similar to yesterday. No additional neurologic symptoms. ROS: General- no fever, no chills Resp- no cough; no shortness of breath Cardiac- no chest pain, no edema GI- no nausea, no vomiting, no diarrhea, no constipation - no dysuria, no difficulty voiding . Objective Last 8 Hrs Date Time Temp Pulse Resp B/P (MAP) Pulse Ox O2 Delivery O2 Flow Rate FiO2 03/02/18 19:45 36.8 72 18 112/70 (84) 93 Room Air 03/02/18 16:00 Room Air 03/02/18 15:57 36.7 68 16 124/70 (88) 92 Room Air Physical Exam: General- no distress Lungs- clear to auscultation; no respiratory distress Cardiovascular- RRR; no murmur or gallop appreciated; no JVD; no pretibial edema Abdomen- + bowel sounds, soft, nontender Extremities- no cyanosis; no calf tenderness Neuro- alert, oriented; PERRL, EOMI; no facial palsy; no dysarthria; ? mild expressive aphasia; motor strength upper and lower extremities essentially 5/5 Skin- warm & dry . Laboratory Results: Last 24 Hours Test 03/02/18 05:28 03/02/18 07:01 White Blood Count 9.96 K/uL Red Blood Count 3.93 M/uL Hemoglobin 13.2 g/dL Hematocrit 38.2 % Mean Corpuscular Volume 97.2 fL Mean Corpuscular Hemoglobin 33.6 pg Mean Corpuscular Hemoglobin Concent 34.6 g/dl Platelet Count 176 K/uL Neutrophils (%) (Auto) 79.6 % Lymphocytes (%) (Auto) 11.5 % Monocytes (%) (Auto) 6.1 % Eosinophils (%) (Auto) 2.4 % Basophils (%) (Auto) 0.1 % Neutrophils # (Auto) 7.92 K/uL Lymphocytes # (Auto) 1.15 K/uL Monocytes # (Auto) 0.61 K/uL Eosinophils # (Auto) 0.24 K/uL Basophils # (Auto) 0.01 K/uL Immature Granulocyte % (Auto) 0.3 % Immature Granulocyte # (Auto) 0.03 K/uL Sodium Level 130 mmol/L Potassium Level mmol/L 4.1 mmol/L Chloride Level 98 mmol/L Carbon Dioxide Level 30 mmol/L Anion Gap 2.0 mmol/L Blood Urea Nitrogen 23 mg/dl Creatinine 1.37 mg/dl Est Creatinine Clear Calc Drug Dose 35.4 ml/min Estimated GFR () 41.5 Estimated GFR (Non- 35.8 BUN/Creatinine Ratio 16.8 Random Glucose 80 mg/dl Calcium Level 8.6 mg/dl Triglycerides Level 68 mg/dl Cholesterol Level 80 mg/dl HDL Cholesterol 49 mg/dl LDL Cholesterol, Calculated 17 mg/dl VLDL Cholesterol, Calculated 14 mg/dl Cholesterol/HDL Ratio 1.6 Assessment & Plan RIGHT THALAMIC STROKE (subacute) Right thalamic stroke on 02/08/18 with left-sided weakness. Doing well at rehab until yesterday when she noticed worsening left sided weakness. CT head demonstrated an equivocal loss of pierson-white differentiation within the right temporal lobe, probably artifactual. CT angiography demonstrated moderate intracranial vascular calcification with multifocal stenoses, no aneurysm, abrupt vessel cut off, or intraluminal thrombus. MRI brain demonstrated subacute infarct in the right thalamus/posterior limb of the right internal capsule with minimal hemorrhage. Carotid duplex and transthoracic echocardiogram performed during recent hospitalization at [facility]; no need to repeat at this time. NSR on EKG. Neurology consulted. [place] that petechial hemorrhage in the region of the subacute infarct was not unexpected and antiplatelet therapy should be continued. Antiplatelet therapy changed from Aggrenox to aspirin and clopidogrel. Blood pressures fluctuating, but relatively low at times. May be best to allow relatively high blood pressures in light of recent stroke and intracranial vascular lesions noted on CTA. Continue lipid management. Continue PT & OT. CHRONIC LEFT VENTRICULAR DIASTOLIC HEART FAILURE Compensated. HYPERTENSION May be best to allow relatively high blood pressures in light of recent stroke and intracranial vascular lesions noted on CTA. Reduce lisinopril to 10 mg daily. Follow and titrate therapy. POSSIBLY ABNORMAL CHEST X-RAY Initial portable chest x-ray demonstrated possible 2.1 cm right suprahilar density. Repeat films with oblique views demonstrated the suspected abnormality was due to calcification of the right first costochondral junction. No need for further evaluation. GERD Continue PPI. DYSLIPIDEMIA Continue atorvastatin. DEPRESSION Continue sertraline. DEMENTIA Continue donepezil and memantine. Monitor for delirium. VTE PROPHYLAXIS Initially received SQ heparin. We will change to SCD's in light of petechial hemorrhage noted on MRI. Ambulate. DISPOSITION Expected return to [facility] for ongoing therapies. Primary care follow-up with Monica Xie PA-C. . Current Inpatient Medications: Current Inpatient Medications Medications (Trade) Dose Ordered Sig/Marcel Route Start Time Stop Time Status Last Admin Dose Admin Ioversol (Optiray 320) 100 ml UD PRN IV 03/01/18 12:00 03/05/18 11:59 Acetaminophen (Tylenol Tab) 650 mg Q4H PRN PO 03/01/18 14:00 03/31/18 13:59 03/02/18 00:46 650 MG Ondansetron HCl (Zofran Inj) 4 mg Q6H PRN IV 03/01/18 14:00 03/31/18 13:59 Miscellaneous Information (Pharmacist Discharge Med Rec Consult) 1 ea UD PRN N/A 03/01/18 14:15 03/31/18 14:14 Amitriptyline HCl (Elavil Tab) 75 mg HS PO 03/01/18 21:00 03/31/18 20:59 03/01/18 19:57 75 MG Atorvastatin Calcium (Lipitor Tab) 40 mg HS PO 03/01/18 21:00 03/31/18 20:59 03/01/18 19:56 40 MG Docusate Sodium (coLACE CAP) 100 mg BID PO 03/01/18 21:00 03/31/18 20:59 03/02/18 07:47 100 MG Donepezil HCl (Aricept Tab) 10 mg QPM PO 03/01/18 21:00 03/31/18 20:59 03/01/18 19:58 10 MG Levothyroxine Sodium (Synthroid Tab) 25 mcg DAILYBB PO 03/02/18 06:00 04/01/18 05:59 03/02/18 06:21 25 MCG Lisinopril (Zestril Tab) 20 mg DAILY PO 03/02/18 09:00 04/01/18 08:59 03/02/18 07:47 20 MG Memantine (Namenda Tab) 10 mg BID PO 03/01/18 21:00 03/31/18 20:59 03/02/18 07:47 10 MG Multivitamins (Multivitamin Tab) 1 tab DAILY PO 03/02/18 09:00 04/01/18 08:59 03/02/18 07:46 1 TAB Nystatin (Mycostatin Powder) 1 appln BID EXT 03/01/18 21:00 03/31/18 20:59 03/02/18 07:46 1 APPLN Pantoprazole Sodium (Protonix Tab) 40 mg DAILY PO 03/02/18 09:00 04/01/18 08:59 03/02/18 07:47 40 MG Senna/Docusate Sodium (Senokot S Tab) 1 tab DAILYBL PO 03/02/18 11:00 04/01/18 10:59 03/02/18 11:17 1 TAB Sertraline HCl (Zoloft Tab) 100 mg DAILY PO 03/02/18 09:00 04/01/18 08:59 03/02/18 07:46 100 MG Polyethylene (Miralax Powder Packet) 17 gm BID PO 03/01/18 21:00 03/31/18 20:59 03/02/18 07:46 17 GM Potassium Chloride (Klor-Con M10) 10 meq BID PO 03/01/18 21:00 03/31/18 20:59 03/02/18 07:47 10 MEQ Gadobutrol (Gadavist) 10 mmol UD PRN IV 03/01/18 21:00 03/05/18 20:59
[2018-03-02] MEDS: AMITRIPTYLINE HCL 50 MG TAB PO SCH (21:38)
[2018-03-02] MEDS: ATORVASTATIN 40 MG TAB PO SCH (21:38)
[2018-03-02] MEDS: DONEPEZIL HCL 10 MG TAB PO SCH (21:38)
[2018-03-02 23:11] VITALS: BP 143/78; PULSE 68; TEMP 36.7; O2SAT 94
[2018-03-03 04:41] VITALS: BP 112/70; PULSE 82; TEMP 36.5; O2SAT 95
[2018-03-03] MEDS: LEVOTHYROXINE 25 MCG TAB PO SCH (06:14)
[2018-03-03 07:12] LABS: CALCIUM 8.7 mg/dl (8.5-10.1); CREATININE 1.35 mg/dl (0.60-1.20); POTASSIUM 4.3 mmol/L (3.5-5.1)
[2018-03-03 07:48] VITALS: BP 115/69; PULSE 76; TEMP 36.6; O2SAT 95
[2018-03-03] MEDS: MEMANTINE 10 MG TAB PO SCH ×2 (08:03→21:38)
[2018-03-03] MEDS: POTASSIUM CHLORIDE 10 MEQ TABCR PO SCH ×2 (08:03→21:37)
[2018-03-03] MEDS: SERTRALINE HCL 100 MG TAB PO SCH (08:03)
[2018-03-03] MEDS: NYSTATIN POWDER 15GM BTL EXT SCH ×2 (08:03→21:35)
[2018-03-03] MEDS: POLYETHYLENE (MIRALAX) 17 GM PACK PO SCH ×2 (08:03→21:38)
[2018-03-03] MEDS: ASPIRIN 81 MG ECTAB PO SCH (08:04)
[2018-03-03] MEDS: CLOPIDOGREL BISULFATE 75 MG TAB PO SCH (08:04)
[2018-03-03] MEDS: MULTIVITAMIN TAB PO SCH (08:04)
[2018-03-03] MEDS: PANTOprazole SOD 40 MG TAB PO SCH (08:04)
[2018-03-03] MEDS: LISINOPRIL 10 MG TAB PO SCH (08:04)
[2018-03-03] MEDS: DOCUSATE SODIUM 100 MG CAP PO SCH ×2 (09:00→21:36)
[2018-03-03 11:23] VITALS: BP 121/68; PULSE 81; TEMP 37; O2SAT 96
[2018-03-03] MEDS: DOCUSATE SODIUM/SENNA 50/8.6MG TAB PO SCH (12:04)
--- NOTE | 2018-03-03 15:25 | Neurology Progress Notes ---
Neurology Progress Note Date of Service Mar 03, 2018. Viktoria Olivares is an 82 year old female with dementia, depression, anxiety, HTN, stage III CKD, morbid obesity who presented to [facility] with weakness and change in speech and confusion. She lives alone and has aids coming into assist her. She states she was trying to get OOB 02/08/2018 and slid to the floor and couldn't get up. She was taken to [facility] and it was discovered she had a right thalamus stroke. She was started on avonex and was cleared for rehab. She was accepted for acute rehab at [facility] and was doing well and again walking with a walker. Today she was having some difficulty with her therapy and was sent to [facility] for evaluation. Currently she is doing fine her daughter is in the room with her and states she has some word finding difficulty at baseline but she was having some slurring of speech when she had the stroke and left UE/LE weakness. She is pleasant and less confused than yesterday. She states she was up with physical therapy today and was doing much better. Her left side seemed to support her better today. She states she always feels more confused in the morning and can't remember things. denies CP, SOB, abdominal pain, one sided weakness, numbness tingling, N, V, headaches vision changes. Objective Date Time Temp Pulse Resp B/P (MAP) Pulse Ox O2 Delivery O2 Flow Rate FiO2 03/03/18 12:00 Room Air 03/03/18 11:23 37.0 81 18 121/68 (85) 96 03/03/18 08:00 Room Air 03/03/18 07:48 36.6 76 18 115/69 (84) 95 03/03/18 04:41 36.5 82 17 112/70 (84) 95 Room Air 03/03/18 04:00 Room Air 03/02/18 23:59 Room Air 03/02/18 23:11 36.7 68 143/78 (99) 94 Room Air 03/02/18 20:00 Room Air 03/02/18 19:45 36.8 72 18 112/70 (84) 93 Room Air 03/02/18 16:00 Room Air 03/02/18 15:57 36.7 68 16 124/70 (88) 92 Room Air Last 24 Hours Test 03/03/18 06:01 Sodium Level 131 mmol/L Potassium Level 4.3 mmol/L Chloride Level 98 mmol/L Carbon Dioxide Level 29 mmol/L Anion Gap 4.0 mmol/L Blood Urea Nitrogen 22 mg/dl Creatinine 1.35 mg/dl Est Creatinine Clear Calc Drug Dose 36.0 ml/min Estimated GFR () 42.3 Estimated GFR (Non- 36.5 BUN/Creatinine Ratio 16.5 Random Glucose 91 mg/dl Calcium Level 8.7 mg/dl Imaging: no new imaging Exam: Gen: alert NAD pleasant oriented to [facility], 2018 lungs normal respiratory effort CV irregular biceps 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 bilateral hip flex plantar flex ext 5/5 bilaterally Current Inpatient Medications Medications (Trade) Dose Ordered Sig/Marcel Route Start Time Stop Time Status Last Admin Dose Admin Ioversol (Optiray 320) 100 ml UD PRN IV 03/01/18 12:00 03/05/18 11:59 Acetaminophen (Tylenol Tab) 650 mg Q4H PRN PO 03/01/18 14:00 03/31/18 13:59 03/02/18 00:46 650 MG Ondansetron HCl (Zofran Inj) 4 mg Q6H PRN IV 03/01/18 14:00 03/31/18 13:59 Miscellaneous Information (Pharmacist Discharge Med Rec Consult) 1 ea UD PRN N/A 03/01/18 14:15 03/31/18 14:14 Amitriptyline HCl (Elavil Tab) 75 mg HS PO 03/01/18 21:00 03/31/18 20:59 03/02/18 21:38 75 MG Atorvastatin Calcium (Lipitor Tab) 40 mg HS PO 03/01/18 21:00 03/31/18 20:59 03/02/18 21:38 40 MG Docusate Sodium (coLACE CAP) 100 mg BID PO 03/01/18 21:00 03/31/18 20:59 03/02/18 21:38 100 MG Donepezil HCl (Aricept Tab) 10 mg QPM PO 03/01/18 21:00 03/31/18 20:59 03/02/18 21:38 10 MG Levothyroxine Sodium (Synthroid Tab) 25 mcg DAILYBB PO 03/02/18 06:00 04/01/18 05:59 03/03/18 06:14 25 MCG Memantine (Namenda Tab) 10 mg BID PO 03/01/18 21:00 03/31/18 20:59 03/03/18 08:03 10 MG Multivitamins (Multivitamin Tab) 1 tab DAILY PO 03/02/18 09:00 04/01/18 08:59 03/03/18 08:04 1 TAB Nystatin (Mycostatin Powder) 1 appln BID EXT 03/01/18 21:00 03/31/18 20:59 03/03/18 08:03 1 APPLN Pantoprazole Sodium (Protonix Tab) 40 mg DAILY PO 03/02/18 09:00 04/01/18 08:59 03/03/18 08:04 40 MG Senna/Docusate Sodium (Senokot S Tab) 1 tab DAILYBL PO 03/02/18 11:00 04/01/18 10:59 03/03/18 12:04 1 TAB Sertraline HCl (Zoloft Tab) 100 mg DAILY PO 03/02/18 09:00 04/01/18 08:59 03/03/18 08:03 100 MG Polyethylene (Miralax Powder Packet) 17 gm BID PO 03/01/18 21:00 03/31/18 20:59 03/03/18 08:03 17 GM Potassium Chloride (Klor-Con M10) 10 meq BID PO 03/01/18 21:00 03/31/18 20:59 03/03/18 08:03 10 MEQ Gadobutrol (Gadavist) 10 mmol UD PRN IV 03/01/18 21:00 03/05/18 20:59 Aspirin (Ecotrin Tab) 81 mg QAM PO 03/03/18 09:00 04/02/18 08:59 03/03/18 08:04 81 MG Clopidogrel Bisulfate (plAVix TAB) 75 mg QAM PO 03/03/18 09:00 04/02/18 08:59 03/03/18 08:04 75 MG Lisinopril (Zestril Tab) 10 mg QAM PO 03/03/18 09:00 04/02/18 08:59 03/03/18 08:04 10 MG Impression 82 year old female right thalamic stroke at [facility] with new weakness Plan 1. MRI combo for better definition of new stroke symptoms- finding of expected evolution of stroke compared to MRI done at [facility] 2. PT/OT for discharge needs will need rehab prior to return home 3. HTN, DL, DM optimize with consideration of age 4. carotid and TTE done at [facility] 5. fall precautions 6. baseline dementia will need close observation improved mentation today 7. care mgt will need to intervene with safe discharge 8. stop aggrenox and start plavix 75 mg and aspirin 81 mg daily, recommend dual therapy for 3 months and then stop aspirin and continue plavix for a lifetime. 9. back to if able prior to return home. neurology in 2-3 weeks after discharge from rehab or hospital Dr Davion Matthew [place] PAC schedule I have seen and discussed above patient with Dr Davion Mathews, neurology Patient sen today without benefit of daughter and she claims to be better but is clearly less than ideally reliable due to dementia exam minor weakness of right leg today at most and overall the working diagnosis here remains an extension of the prior small vessel deep cva and she likely need to return to [facility] for additional rehab to regain the status that she had prio to her decline beginning on Wednesday we will sign off and follow up in office as per above plans Davion Mathews MD
[2018-03-03 15:57] VITALS: BP 148/79; PULSE 74; TEMP 36.5; O2SAT 96
[2018-03-03 20:15] VITALS: BP 130/73; PULSE 80; TEMP 36.7; O2SAT 92
--- NOTE | 2018-03-03 21:00 | Progress Note ---
Medicine Progress Note Date & Time of Visit: Mar 03, 2018 at 16:55 . Subjective CC: Follow-up visit for recent stroke with worsening symptoms. HPI: Feels better. Headache improved. Left lower extremity strength better. ROS: General- no fever, no chills Resp- no cough; no shortness of breath Cardiac- no chest pain, no edema GI- no nausea, no vomiting, no diarrhea, no constipation - no dysuria . Objective Last 8 Hrs Date Time Temp Pulse Resp B/P (MAP) Pulse Ox O2 Delivery O2 Flow Rate FiO2 03/03/18 20:15 36.7 80 18 130/73 (92) 92 Room Air 03/03/18 20:00 Room Air 03/03/18 16:00 Room Air 03/03/18 15:57 36.5 74 18 148/79 (102) 96 Room Air Physical Exam: General- no distress Lungs- clear to auscultation; no respiratory distress Cardiovascular- RRR; no murmur or gallop appreciated; no JVD; no pretibial edema Abdomen- + bowel sounds, soft, nontender Extremities- no cyanosis; no calf tenderness Neuro- alert, oriented; PERRL, EOMI; no facial palsy; no dysarthria; motor strength upper and lower extremities essentially 5/5 Skin- warm & dry . Laboratory Results: Last 24 Hours Test 03/03/18 06:01 Sodium Level 131 mmol/L Potassium Level 4.3 mmol/L Chloride Level 98 mmol/L Carbon Dioxide Level 29 mmol/L Anion Gap 4.0 mmol/L Blood Urea Nitrogen 22 mg/dl Creatinine 1.35 mg/dl Est Creatinine Clear Calc Drug Dose 36.0 ml/min Estimated GFR () 42.3 Estimated GFR (Non- 36.5 BUN/Creatinine Ratio 16.5 Random Glucose 91 mg/dl Calcium Level 8.7 mg/dl Assessment & Plan RIGHT THALAMIC STROKE (subacute) Right thalamic stroke on 02/08/18 with left-sided weakness. Doing well at rehab until yesterday when she noticed worsening left sided weakness. CT head demonstrated an equivocal loss of pierson-white differentiation within the right temporal lobe, probably artifactual. CT angiography demonstrated moderate intracranial vascular calcification with multifocal stenoses, no aneurysm, abrupt vessel cut off, or intraluminal thrombus. MRI brain demonstrated subacute infarct in the right thalamus/posterior limb of the right internal capsule with minimal hemorrhage. Carotid duplex and transthoracic echocardiogram performed during recent hospitalization at [facility]; no need to repeat at this time. NSR on EKG. Neurology consulted. [place] that petechial hemorrhage in the region of the subacute infarct was not unexpected and antiplatelet therapy should be continued. Antiplatelet therapy changed from Aggrenox to aspirin and clopidogrel. Blood pressures fluctuating, but relatively low at times. May be best to allow relatively high blood pressures in light of recent stroke and intracranial vascular lesions noted on CTA. Management of hypertension as noted below. Continue lipid management. Continue PT & OT. CHRONIC LEFT VENTRICULAR DIASTOLIC HEART FAILURE Compensated. HYPERTENSION May be best to allow relatively high blood pressures in light of recent stroke and intracranial vascular lesions noted on CTA. Reduced lisinopril to 10 mg daily with hold parameters. Follow and titrate therapy. POSSIBLY ABNORMAL CHEST X-RAY Initial portable chest x-ray demonstrated possible 2.1 cm right suprahilar density. Repeat films with oblique views demonstrated the suspected abnormality was due to calcification of the right first costochondral junction. No need for further evaluation. GERD Continue PPI. DYSLIPIDEMIA LDL-c = 17. Continue atorvastatin. DEPRESSION Continue sertraline. DEMENTIA Continue donepezil and memantine. Monitor for delirium. VTE PROPHYLAXIS Initially received SQ heparin. Changed prophylaxis to SCD's in light of petechial hemorrhage noted on MRI. Ambulate. DISPOSITION Expected return to [facility] for ongoing therapies. Primary care follow-up with Monica Xie PA-C. . Current Inpatient Medications: Current Inpatient Medications Medications (Trade) Dose Ordered Sig/Marcel Route Start Time Stop Time Status Last Admin Dose Admin Ioversol (Optiray 320) 100 ml UD PRN IV 03/01/18 12:00 03/05/18 11:59 Acetaminophen (Tylenol Tab) 650 mg Q4H PRN PO 03/01/18 14:00 03/31/18 13:59 03/02/18 00:46 650 MG Ondansetron HCl (Zofran Inj) 4 mg Q6H PRN IV 03/01/18 14:00 03/31/18 13:59 Miscellaneous Information (Pharmacist Discharge Med Rec Consult) 1 ea UD PRN N/A 03/01/18 14:15 03/31/18 14:14 Amitriptyline HCl (Elavil Tab) 75 mg HS PO 03/01/18 21:00 03/31/18 20:59 03/02/18 21:38 75 MG Atorvastatin Calcium (Lipitor Tab) 40 mg HS PO 03/01/18 21:00 03/31/18 20:59 03/02/18 21:38 40 MG Docusate Sodium (coLACE CAP) 100 mg BID PO 03/01/18 21:00 03/31/18 20:59 03/02/18 21:38 100 MG Donepezil HCl (Aricept Tab) 10 mg QPM PO 03/01/18 21:00 03/31/18 20:59 03/02/18 21:38 10 MG Levothyroxine Sodium (Synthroid Tab) 25 mcg DAILYBB PO 03/02/18 06:00 04/01/18 05:59 03/03/18 06:14 25 MCG Memantine (Namenda Tab) 10 mg BID PO 03/01/18 21:00 03/31/18 20:59 03/03/18 08:03 10 MG Multivitamins (Multivitamin Tab) 1 tab DAILY PO 03/02/18 09:00 04/01/18 08:59 03/03/18 08:04 1 TAB Nystatin (Mycostatin Powder) 1 appln BID EXT 03/01/18 21:00 03/31/18 20:59 03/03/18 08:03 1 APPLN Pantoprazole Sodium (Protonix Tab) 40 mg DAILY PO 03/02/18 09:00 04/01/18 08:59 03/03/18 08:04 40 MG Senna/Docusate Sodium (Senokot S Tab) 1 tab DAILYBL PO 03/02/18 11:00 04/01/18 10:59 03/03/18 12:04 1 TAB Sertraline HCl (Zoloft Tab) 100 mg DAILY PO 03/02/18 09:00 04/01/18 08:59 03/03/18 08:03 100 MG Polyethylene (Miralax Powder Packet) 17 gm BID PO 03/01/18 21:00 03/31/18 20:59 03/03/18 08:03 17 GM Potassium Chloride (Klor-Con M10) 10 meq BID PO 03/01/18 21:00 03/31/18 20:59 03/03/18 08:03 10 MEQ Gadobutrol (Gadavist) 10 mmol UD PRN IV 03/01/18 21:00 03/05/18 20:59 Aspirin (Ecotrin Tab) 81 mg QAM PO 03/03/18 09:00 04/02/18 08:59 03/03/18 08:04 81 MG Clopidogrel Bisulfate (plAVix TAB) 75 mg QAM PO 03/03/18 09:00 04/02/18 08:59 03/03/18 08:04 75 MG Lisinopril (Zestril Tab) 10 mg QAM PO 03/03/18 09:00 04/02/18 08:59 03/03/18 08:04 10 MG
[2018-03-03] MEDS: DONEPEZIL HCL 10 MG TAB PO SCH (21:36)
[2018-03-03] MEDS: ATORVASTATIN 40 MG TAB PO SCH (21:36)
[2018-03-03] MEDS: AMITRIPTYLINE HCL 50 MG TAB PO SCH (21:36)
[2018-03-03 23:45] VITALS: BP 121/76; PULSE 75; TEMP 36.8; O2SAT 93
[2018-03-04 04:23] VITALS: BP 106/65; PULSE 78; TEMP 36.5; O2SAT 90
[2018-03-04] MEDS: LEVOTHYROXINE 25 MCG TAB PO SCH (06:11)
[2018-03-04 06:31] LABS: CALCIUM 8.6 mg/dl (8.5-10.1); CREATININE 1.28 mg/dl (0.60-1.20); POTASSIUM 4.3 mmol/L (3.5-5.1)
[2018-03-04 07:58] VITALS: BP 112/69; PULSE 71; TEMP 36.5; O2SAT 92
[2018-03-04] MEDS: PANTOprazole SOD 40 MG TAB PO SCH (08:36)
[2018-03-04] MEDS: MEMANTINE 10 MG TAB PO SCH ×2 (08:36→20:57)
[2018-03-04] MEDS: SERTRALINE HCL 100 MG TAB PO SCH (08:36)
[2018-03-04] MEDS: ASPIRIN 81 MG ECTAB PO SCH (08:36)
[2018-03-04] MEDS: MULTIVITAMIN TAB PO SCH (08:36)
[2018-03-04] MEDS: CLOPIDOGREL BISULFATE 75 MG TAB PO SCH (08:36)
[2018-03-04] MEDS: DOCUSATE SODIUM 100 MG CAP PO SCH ×2 (08:36→20:59)
[2018-03-04] MEDS: DOCUSATE SODIUM/SENNA 50/8.6MG TAB PO SCH (08:36)
[2018-03-04] MEDS: POLYETHYLENE (MIRALAX) 17 GM PACK PO SCH ×2 (08:37→21:00)
[2018-03-04] MEDS: POTASSIUM CHLORIDE 10 MEQ TABCR PO SCH ×2 (08:37→20:57)
[2018-03-04] MEDS: LISINOPRIL 10 MG TAB PO SCH (08:37)
[2018-03-04] MEDS: NYSTATIN POWDER 15GM BTL EXT SCH ×2 (08:38→20:56)
[2018-03-04 11:25] VITALS: BP 94/61; PULSE 72; TEMP 36.6; O2SAT 91
[2018-03-04 16:14] VITALS: BP 115/68; PULSE 76; TEMP 36.8; O2SAT 91
[2018-03-04 20:24] VITALS: BP 113/70; PULSE 84; TEMP 37; O2SAT 91
[2018-03-04] MEDS: ATORVASTATIN 40 MG TAB PO SCH (20:56)
[2018-03-04] MEDS: DONEPEZIL HCL 10 MG TAB PO SCH (20:58)
[2018-03-04] MEDS: AMITRIPTYLINE HCL 50 MG TAB PO SCH (20:59)
--- NOTE | 2018-03-04 21:23 | Progress Note ---
Medicine Progress Note Date & Time of Visit: Mar 04, 2018 at 10:50 . Subjective CC: Follow-up visit for recent stroke with worsening symptoms. HPI: Neuro symptoms about the same. Has a bifrontal headache. No new neurologic symptoms. Nauseated this morning without emesis. Had one loose stool yesterday, none today. ROS: General- no fever, no chills Resp- no cough; no shortness of breath Cardiac- no chest pain, no edema GI- as noted above in HPI - no dysuria . Objective Last 8 Hrs Date Time Temp Pulse Resp B/P (MAP) Pulse Ox O2 Delivery O2 Flow Rate FiO2 03/04/18 20:24 37.0 84 18 113/70 (84) 91 Room Air 03/04/18 20:00 Room Air 03/04/18 16:14 36.8 76 18 115/68 (84) 91 Room Air 03/04/18 16:00 Room Air Physical Exam: General- no distress Lungs- clear to auscultation; no respiratory distress Cardiovascular- RRR; no murmur or gallop appreciated; no JVD; no pretibial edema Abdomen- + bowel sounds, soft, nontender Extremities- no cyanosis; no calf tenderness Neuro- alert; PERRL, EOMI; no facial palsy; no dysarthria; motor strength upper and lower extremities essentially 5/5 Skin- warm & dry . Laboratory Results: Last 24 Hours Test 03/04/18 05:32 Sodium Level 131 mmol/L Potassium Level 4.3 mmol/L Chloride Level 98 mmol/L Carbon Dioxide Level 30 mmol/L Anion Gap 3.0 mmol/L Blood Urea Nitrogen 22 mg/dl Creatinine 1.28 mg/dl Est Creatinine Clear Calc Drug Dose 37.7 ml/min Estimated GFR () 45.1 Estimated GFR (Non- 38.9 BUN/Creatinine Ratio 17.0 Random Glucose 97 mg/dl Calcium Level 8.6 mg/dl Assessment & Plan RIGHT THALAMIC STROKE (subacute) Right thalamic stroke on 02/08/18 with left-sided weakness. Doing well at rehab until yesterday when she noticed worsening left sided weakness. CT head demonstrated an equivocal loss of pierson-white differentiation within the right temporal lobe, probably artifactual. CT angiography demonstrated moderate intracranial vascular calcification with multifocal stenoses, no aneurysm, abrupt vessel cut off, or intraluminal thrombus. MRI brain demonstrated subacute infarct in the right thalamus/posterior limb of the right internal capsule with minimal hemorrhage. Carotid duplex and transthoracic echocardiogram performed during recent hospitalization at [facility]; no need to repeat at this time. NSR on EKG. Neurology consulted. [place] that petechial hemorrhage in the region of the subacute infarct was not unexpected and antiplatelet therapy should be continued. Antiplatelet therapy changed from Aggrenox to aspirin and clopidogrel. Blood pressures fluctuating, but were relatively low at times. Probably best to allow relatively high blood pressures in light of recent stroke and intracranial vascular lesions noted on CTA. Management of hypertension as noted below. Continue lipid management. Continue PT & OT. CHRONIC LEFT VENTRICULAR DIASTOLIC HEART FAILURE Compensated. HYPERTENSION May be best to allow relatively high blood pressures in light of recent stroke and intracranial vascular lesions noted on CTA. Reduced lisinopril to 10 mg daily with hold parameters. Follow and titrate therapy. POSSIBLY ABNORMAL CHEST X-RAY Initial portable chest x-ray demonstrated possible 2.1 cm right suprahilar density. Repeat films with oblique views demonstrated the suspected abnormality was due to calcification of the right first costochondral junction. No need for further evaluation. GERD Continue PPI. DYSLIPIDEMIA LDL-c = 17. Continue atorvastatin. DEPRESSION Continue sertraline. DEMENTIA Continue donepezil and memantine. Monitor for delirium. VTE PROPHYLAXIS Initially received SQ heparin. Changed prophylaxis to SCD's in light of petechial hemorrhage noted on MRI. Ambulate. DISPOSITION Expected return to [facility] for ongoing therapies. Primary care follow-up with Monica Xie PA-C. . Current Inpatient Medications: Current Inpatient Medications Medications (Trade) Dose Ordered Sig/Marcel Route Start Time Stop Time Status Last Admin Dose Admin Ioversol (Optiray 320) 100 ml UD PRN IV 03/01/18 12:00 03/05/18 11:59 Acetaminophen (Tylenol Tab) 650 mg Q4H PRN PO 03/01/18 14:00 03/31/18 13:59 03/02/18 00:46 650 MG Ondansetron HCl (Zofran Inj) 4 mg Q6H PRN IV 03/01/18 14:00 03/31/18 13:59 03/04/18 10:03 4 MG Amitriptyline HCl (Elavil Tab) 75 mg HS PO 03/01/18 21:00 03/31/18 20:59 03/04/18 20:59 75 MG Atorvastatin Calcium (Lipitor Tab) 40 mg HS PO 03/01/18 21:00 03/31/18 20:59 03/04/18 20:56 40 MG Docusate Sodium (coLACE CAP) 100 mg BID PO 03/01/18 21:00 03/31/18 20:59 03/04/18 08:36 100 MG Donepezil HCl (Aricept Tab) 10 mg QPM PO 03/01/18 21:00 03/31/18 20:59 03/04/18 20:58 10 MG Levothyroxine Sodium (Synthroid Tab) 25 mcg DAILYBB PO 03/02/18 06:00 04/01/18 05:59 03/04/18 06:11 25 MCG Memantine (Namenda Tab) 10 mg BID PO 03/01/18 21:00 03/31/18 20:59 03/04/18 20:57 10 MG Multivitamins (Multivitamin Tab) 1 tab DAILY PO 03/02/18 09:00 04/01/18 08:59 03/04/18 08:36 1 TAB Nystatin (Mycostatin Powder) 1 appln BID EXT 03/01/18 21:00 03/31/18 20:59 03/04/18 20:56 1 APPLN Pantoprazole Sodium (Protonix Tab) 40 mg DAILY PO 03/02/18 09:00 04/01/18 08:59 03/04/18 08:36 40 MG Senna/Docusate Sodium (Senokot S Tab) 1 tab DAILYBL PO 03/02/18 11:00 04/01/18 10:59 03/04/18 08:36 1 TAB Sertraline HCl (Zoloft Tab) 100 mg DAILY PO 03/02/18 09:00 04/01/18 08:59 03/04/18 08:36 100 MG Polyethylene (Miralax Powder Packet) 17 gm BID PO 03/01/18 21:00 03/31/18 20:59 03/04/18 08:37 17 GM Potassium Chloride (Klor-Con M10) 10 meq BID PO 03/01/18 21:00 03/31/18 20:59 03/04/18 20:57 10 MEQ Gadobutrol (Gadavist) 10 mmol UD PRN IV 03/01/18 21:00 03/05/18 20:59 Aspirin (Ecotrin Tab) 81 mg QAM PO 03/03/18 09:00 04/02/18 08:59 03/04/18 08:36 81 MG Clopidogrel Bisulfate (plAVix TAB) 75 mg QAM PO 03/03/18 09:00 04/02/18 08:59 03/04/18 08:36 75 MG Lisinopril (Zestril Tab) 10 mg QAM PO 03/03/18 09:00 04/02/18 08:59 03/04/18 08:37 10 MG
[2018-03-04] MEDS ORDERED: METHYLPREDNISOLONE IV 50 MG in SYRINGE 0 ML IV ONE (23:45)
[2018-03-05] VITALS (7 sets, daily range): BP systolic 109–126; BP diastolic 72–77; PULSE 64–76; TEMP 36.5–36.9; O2SAT 90–93
[2018-03-05] MEDS: LEVOTHYROXINE 25 MCG TAB PO SCH (05:46)
[2018-03-05 06:17] LABS: CALCIUM 8.8 mg/dl (8.5-10.1); CREATININE 1.2 mg/dl (0.60-1.20); POTASSIUM 4.5 mmol/L (3.5-5.1)
[2018-03-05] MEDS: PANTOprazole SOD 40 MG TAB PO SCH (08:28)
[2018-03-05] MEDS: MULTIVITAMIN TAB PO SCH (08:28)
[2018-03-05] MEDS: CLOPIDOGREL BISULFATE 75 MG TAB PO SCH (08:29)
[2018-03-05] MEDS: DOCUSATE SODIUM/SENNA 50/8.6MG TAB PO SCH (08:29)
[2018-03-05] MEDS: SERTRALINE HCL 100 MG TAB PO SCH (08:29)
[2018-03-05] MEDS: DOCUSATE SODIUM 100 MG CAP PO SCH (08:29)
[2018-03-05] MEDS: POTASSIUM CHLORIDE 10 MEQ TABCR PO SCH (08:29)
[2018-03-05] MEDS: NYSTATIN POWDER 15GM BTL EXT SCH (08:30)
[2018-03-05] MEDS: MEMANTINE 10 MG TAB PO SCH (08:30)
[2018-03-05] MEDS: ASPIRIN 81 MG ECTAB PO SCH (08:30)
[2018-03-05] MEDS: POLYETHYLENE (MIRALAX) 17 GM PACK PO SCH (08:30)
[2018-03-05] MEDS ORDERED: LISINOPRIL 5 MG TAB PO SCH (09:00)
--- NOTE | 2018-03-05 14:02 | Progress Note ---
Medicine Progress Note Date & Time of Visit: Mar 05, 2018 at ~ 11:00 . Subjective CC: Follow-up visit for recent stroke with worsening symptoms. HPI: Patchy rash on back and abdomen last night; better after receiving diphenhydramine and IV methylprednisolone. Mild frontal headache. No new neurologic symptoms. Nausea resolved. ROS: General- no fever, no chills Resp- no cough; no shortness of breath Cardiac- no chest pain, no edema GI- as noted above in HPI - no dysuria . Objective Last 8 Hrs Date Time Temp Pulse Resp B/P (MAP) Pulse Ox O2 Delivery O2 Flow Rate FiO2 03/05/18 12:00 Room Air 03/05/18 11:37 36.9 64 19 112/72 (85) 93 Room Air 03/05/18 08:00 Room Air 03/05/18 06:48 36.6 75 18 126/77 (93) 90 Room Air Physical Exam: General- no distress Lungs- clear to auscultation; no respiratory distress Cardiovascular- RRR; no murmur or gallop appreciated; no JVD; no pretibial edema Abdomen- + bowel sounds, soft, nontender Extremities- no cyanosis; no calf tenderness Neuro- alert; oriented to person, hospital, month, year; cannot name the president; PERRL, EOMI; no facial palsy; no dysarthria; motor strength upper and lower extremities essentially 5/5 Skin- warm & dry; maculopapular rash mostly on back, but also involving abdomen and thighs . Laboratory Results: Last 24 Hours Test 03/05/18 05:16 Sodium Level 130 mmol/L Potassium Level 4.5 mmol/L Chloride Level 100 mmol/L Carbon Dioxide Level 26 mmol/L Anion Gap 4.0 mmol/L Blood Urea Nitrogen 24 mg/dl Creatinine 1.20 mg/dl Est Creatinine Clear Calc Drug Dose 40.3 ml/min Estimated GFR () 48.7 Estimated GFR (Non- 42.1 BUN/Creatinine Ratio 19.7 Random Glucose 122 mg/dl Calcium Level 8.8 mg/dl Assessment & Plan RIGHT THALAMIC STROKE (subacute) Right thalamic stroke on 02/08/18 with left-sided weakness. Doing well at rehab until yesterday when she noticed worsening left sided weakness. CT head demonstrated an equivocal loss of pierson-white differentiation within the right temporal lobe, probably artifactual. CT angiography demonstrated moderate intracranial vascular calcification with multifocal stenoses, no aneurysm, abrupt vessel cut off, or intraluminal thrombus. MRI brain demonstrated subacute infarct in the right thalamus/posterior limb of the right internal capsule with minimal hemorrhage. Carotid duplex and transthoracic echocardiogram performed during recent hospitalization at [facility]; no need to repeat at this time. NSR on EKG. Neurology consulted. [place] that petechial hemorrhage in the region of the subacute infarct was not unexpected and antiplatelet therapy should be continued. Antiplatelet therapy changed from Aggrenox to aspirin and clopidogrel. Blood pressures fluctuating, but were relatively low at times. Probably best to allow relatively high blood pressures in light of recent stroke and intracranial vascular lesions noted on CTA. Management of hypertension as noted below. Was receiving Aggrenox as a new medication for her ischemic stroke. Developed headaches after starting Aggrenox therapy. Received aspirin and clopidogrel here as antiplatelet therapy. Patient developed rash and only new medication was clopidogrel, so it was discontinued. Resume aspirin at an increased dose of 162 mg daily. Continue lipid management. Continue PT & OT. CHRONIC LEFT VENTRICULAR DIASTOLIC HEART FAILURE Compensated. HYPERTENSION May be best to allow relatively high blood pressures in light of recent stroke and intracranial vascular lesions noted on CTA. Reduced lisinopril to 5 mg daily with hold parameters. Follow and titrate therapy, gradually allowing blood pressures run higher. POSSIBLY ABNORMAL CHEST X-RAY Initial portable chest x-ray demonstrated possible 2.1 cm right suprahilar density. Repeat films with oblique views demonstrated the suspected abnormality was due to calcification of the right first costochondral junction. No need for further evaluation. GERD Continue PPI. DYSLIPIDEMIA LDL-c = 17. Continue atorvastatin. DEPRESSION Continue sertraline. Consider tapering amitriptyline as discussed below. DEMENTIA Continue donepezil and memantine. Amitriptyline could be contributing to confusion. Try reducing dose from 75 mg hs to 50 mg hs with subsequent tapering to discontinuation if possible. Monitor for delirium. RASH Patient developed maculopapular rash primarily on her back, but also involving abdomen and thighs. Only new medication was clopidogrel. Received diphenhydramine and intravenous methylprednisolone with improvement of itching. Best to avoid anticholinergic medications as much as possible because of dementia. We will discharge on short steroid taper and cetirizine as needed. VTE PROPHYLAXIS Initially received SQ heparin. Changed prophylaxis to SCD's in light of petechial hemorrhage noted on MRI. Ambulate. DISPOSITION Expected return to [facility] for ongoing therapies. Primary care follow-up with Monica Xie PA-C. . Current Inpatient Medications: Current Inpatient Medications Medications (Trade) Dose Ordered Sig/Marcel Route Start Time Stop Time Status Last Admin Dose Admin Acetaminophen (Tylenol Tab) 650 mg Q4H PRN PO 03/01/18 14:00 03/31/18 13:59 03/02/18 00:46 650 MG Ondansetron HCl (Zofran Inj) 4 mg Q6H PRN IV 03/01/18 14:00 03/31/18 13:59 03/04/18 10:03 4 MG Amitriptyline HCl (Elavil Tab) 75 mg HS PO 03/01/18 21:00 03/31/18 20:59 03/04/18 20:59 75 MG Atorvastatin Calcium (Lipitor Tab) 40 mg HS PO 03/01/18 21:00 03/31/18 20:59 03/04/18 20:56 40 MG Docusate Sodium (coLACE CAP) 100 mg BID PO 03/01/18 21:00 03/31/18 20:59 03/05/18 08:29 100 MG Donepezil HCl (Aricept Tab) 10 mg QPM PO 03/01/18 21:00 03/31/18 20:59 03/04/18 20:58 10 MG Levothyroxine Sodium (Synthroid Tab) 25 mcg DAILYBB PO 03/02/18 06:00 04/01/18 05:59 03/05/18 05:46 25 MCG Memantine (Namenda Tab) 10 mg BID PO 03/01/18 21:00 03/31/18 20:59 03/05/18 08:30 10 MG Multivitamins (Multivitamin Tab) 1 tab DAILY PO 03/02/18 09:00 04/01/18 08:59 03/05/18 08:28 1 TAB Nystatin (Mycostatin Powder) 1 appln BID EXT 03/01/18 21:00 03/31/18 20:59 03/05/18 08:30 1 APPLN Pantoprazole Sodium (Protonix Tab) 40 mg DAILY PO 03/02/18 09:00 04/01/18 08:59 4/28/18 08:28 40 MG Senna/Docusate Sodium (Senokot S Tab) 1 tab DAILYBL PO 03/02/18 11:00 04/01/18 10:59 03/04/18 08:36 1 TAB Sertraline HCl (Zoloft Tab) 100 mg DAILY PO 03/02/18 09:00 04/01/18 08:59 03/05/18 08:29 100 MG Polyethylene (Miralax Powder Packet) 17 gm BID PO 03/01/18 21:00 03/31/18 20:59 03/04/18 08:37 17 GM Potassium Chloride (Klor-Con M10) 10 meq BID PO 03/01/18 21:00 03/31/18 20:59 03/05/18 08:29 10 MEQ Gadobutrol (Gadavist) 10 mmol UD PRN IV 03/01/18 21:00 03/05/18 20:59 Aspirin (Ecotrin Tab) 81 mg QAM PO 03/03/18 09:00 04/02/18 08:59 03/05/18 08:30 81 MG Lisinopril (Zestril Tab) 5 mg QAM PO 03/05/18 09:00 04/04/18 08:59 03/05/18 08:30 5 MG
[2018-03-05] MEDS ORDERED: LSN5 PO (14:08)
[2018-03-05] MEDS ORDERED: CETI10TA84 PO (14:08)
[2018-03-05] MEDS ORDERED: PRED10TA PO (14:08)
[2018-03-05] MEDS ORDERED: ASPI-428 PO (14:08)
[2018-03-05] MEDS ORDERED: AMT50 PO (14:08)
--- NOTE | 2018-03-05 14:15 | Discharge Instructions ---
Discharge Instructions Date of Service Mar 05, 2018. Admission Reason for Admission: weakness left lower extremity . Discharge Discharge Diagnosis / Problem: subacute right thalamic stroke Discharge Goals Goal(s): Improve function, Improve disease control Activity Recommendations Activity Level: Assistance Required Therapies: Physical Therapy, Occupational Therapy, Speech Therapy . Additional Information Patient informed of condition: Yes Advance Directives: Yes DNR: Yes Level of Care: Acute Rehab Communicable Disease: No Prognosis: Improving Ruff Catheter: No Instructions / Follow-Up Instructions / Follow-Up Please arrange for follow-up with PCP within 1 week of discharge from your facility. Thank you for receiving this patient in transfer. Please call if you have any questions. Davion Ashraf . Current Hospital Diet Patient's current hospital diet: AHA Diet (Heart Healthy) Discharge Diet Recommended Diet: AHA Diet (Heart Healthy) Pending Studies Studies pending at discharge: no Physician Orders On Transfer Special Precautions: fall precautions aspiration precautions . Vital Signs: routine. . Weigh: routine. . Additional Orders: VTE PROPHYLAXIS: SCD's (no anticoagulants because of petechial hemorrhage noted on MRI brain) . Laboratory Results Hemoglobin A1c Test 03/01/18 11:27 Range/Units Estimated Average Glucose 111 mg/dl Hemoglobin A1c 5.5 4.5-5.6 % Lipid Panel Test 03/02/18 05:28 Range/Units Triglycerides Level 68 0-150 mg/dl Cholesterol Level 80 0-200 mg/dl HDL Cholesterol 49 mg/dl Cholesterol/HDL Ratio 1.6 LDL Cholesterol, Calculated 17 mg/dl Medical Emergencies . Who to Call and When: Medical Emergencies: If at any time you feel your situation is an emergency, please call 911 immediately. . Non-Emergent Contact Non-Emergency issues call your: Primary Care Provider, Hospital Doctor, Neurologist . . "Provider Documentation" section prepared by Davion Ashraf. . Core Measure Problem Core Measures: Stroke Stroke Core Measures Reason no t-PA for Stroke: Treatment not indicated Reason no antithrom by day 2: Treatment provided - N/A Reason no antithrom at D/C: Treatment provided - N/A Reason no statin at D/C: Treatment provided - N/A Reason no anticoag w/a fib: Treatment not indicated
--- NOTE | 2018-03-05 14:23 | Discharge Summary ---
Discharge Summary Date of Service Mar 05, 2018. Discharge Summary Admission Date: Mar 01, 2018 at 13:06 Discharge Date: Mar 05, 2018 Discharge Disposition: Rehab ([facility]) Principal Diagnosis: subacute right thalamic ischemic stroke (with minimal petechial hemorrhage) OTHER ACUTE / SECONDARY DIAGNOSES: rash - suspected drug eruption secondary to clopidogrel . Secondary Diagnoses/Problems: Chronic and Resolved Medical Problems: (1) Anxiety Status: Chronic (2) CKD (chronic kidney disease), stage III Status: Chronic (3) Dementia Status: Chronic (4) Depression Status: Chronic (5) Diastolic dysfunction Status: Chronic (6) GERD (gastroesophageal reflux disease) Status: Chronic (7) Hyperlipidemia Status: Chronic (8) Hypertension Status: Chronic (9) Hypothyroidism Status: Chronic (10) Thalamic infarction Status: Chronic Surgical Problems: (1) H/O dilation and curettage Status: Chronic (2) H/O ovarian cystectomy Status: Chronic (3) H/O tubal ligation Status: Chronic (4) History of carpal tunnel surgery Status: Chronic (5) History of cataract surgery Status: Chronic (6) History of hysterectomy Status: Chronic (7) History of tonsillectomy and adenoidectomy Status: Chronic (8) Hx of appendectomy Status: Chronic (9) S/P lumbar spinal fusion Status: Chronic . Procedures: CT head CTA brain MRI head cardiac monitoring PT OT [employer] . Consultations: Neurology . Pending Studies/Follow-Up: Please check basic metabolic profile in 1-2 days. Please check f/u CT head without contrast in about 1 week to follow for right thalamic petechial hemorrhage. . Admission Information HPI (per Admitting provider): 82-year-old female who presents the ED with left-sided weakness and speech difficulties. Patient was admitted to [facility] 02/08 through 02/10 after she had slid out of bed onto the floor. While admitted she was found to have an acute right thalamic infarct. Patient was started on Aggrenox and discharged to [facility] for further rehab. Patient reports she has been doing well since at [facility]. She feels that yesterday her left-sided weakness was little worse than normal. This morning whenever she woke up she felt like she was in her usual state of health. However during therapy the therapist noted that she was having some more difficulty with her left side and her speech was more garbled than it had been. She was also complaining of a frontal headache. Patient was sent to the ER for further evaluation. Patient denies any other associated symptoms. No chest pain or shortness of breath. She denies lightheadedness, dizziness, diaphoresis, or syncopal events. No fevers or chills. She denies abdominal pain, nausea, vomiting, diarrhea. No urinary symptoms. In the ED, patient head CT is negative for acute findings. Labs are unremarkable. Patient was given 1 L IVF and Tylenol. . Physical Exam (per Admitting): General Appearance: WD/WN, no apparent distress Head: normocephalic, atraumatic Eyes: normal inspection, PERRL, EOMI, sclerae normal ENT: hearing grossly normal, + pertinent finding (Mucous membranes moist) Neck: supple, no JVD, trachea midline Respiratory/Chest: lungs clear, normal breath sounds, no respiratory distress Cardiovascular: regular rate, rhythm, no edema, normal peripheral pulses Abdomen/GI: normal bowel sounds, non tender, soft, no organomegaly Extremities/Musculoskelatal: normal inspection, no calf tenderness, normal capillary refill Neurologic/Psych: alert, normal mood/affect, oriented x 3, + pertinent finding (Mild dysarthria, mild left facial droop with nasolabial flattening, strength strong and equal bilateral upper and lower extremities, finger to nose intact bilateral upper extremities, no pronator drift) Skin: normal color, warm/dry Hospital Course RIGHT THALAMIC STROKE (subacute) Right thalamic stroke on 02/08/18 with left-sided weakness. Doing well at rehab until yesterday when she noticed worsening left sided weakness. CT head demonstrated an equivocal loss of pierson-white differentiation within the right temporal lobe, probably artifactual. CT angiography demonstrated moderate intracranial vascular calcification with multifocal stenoses, no aneurysm, abrupt vessel cut off, or intraluminal thrombus. MRI brain demonstrated subacute infarct in the right thalamus/posterior limb of the right internal capsule with minimal hemorrhage. Carotid duplex and transthoracic echocardiogram performed during recent hospitalization at [facility]; no need to repeat at this time. NSR on EKG. Neurology consulted. [place] that petechial hemorrhage in the region of the subacute infarct was not unexpected and antiplatelet therapy should be continued. Antiplatelet therapy changed from Aggrenox to aspirin and clopidogrel. Blood pressures fluctuating, but were relatively low at times. Probably best to allow relatively high blood pressures in light of recent stroke and intracranial vascular lesions noted on CTA. Management of hypertension as noted below. Was receiving Aggrenox as a new medication for her ischemic stroke. Developed headaches after starting Aggrenox therapy. Received aspirin and clopidogrel here as antiplatelet therapy. Patient developed rash and only new medication was clopidogrel, so it was discontinued. Resume aspirin at an increased dose of 162 mg daily. Continue lipid management. Continue PT & OT. CHRONIC LEFT VENTRICULAR DIASTOLIC HEART FAILURE Compensated. HYPERTENSION May be best to allow relatively high blood pressures in light of recent stroke and intracranial vascular lesions noted on CTA. Reduced lisinopril to 5 mg daily with hold parameters. Follow and titrate therapy, gradually allowing blood pressures run higher. POSSIBLY ABNORMAL CHEST X-RAY Initial portable chest x-ray demonstrated possible 2.1 cm right suprahilar density. Repeat films with oblique views demonstrated the suspected abnormality was due to calcification of the right first costochondral junction. No need for further evaluation. GERD Continue PPI. DYSLIPIDEMIA LDL-c = 17. Continue atorvastatin. DEPRESSION Continue sertraline. Consider tapering amitriptyline as discussed below. DEMENTIA Continue donepezil and memantine. Best to minimize use of anticholinergic meds. Amitriptyline could be contributing to confusion. Try reducing dose from 75 mg hs to 50 mg hs with subsequent tapering to discontinuation if possible. Try to avoid benzodiazepines if possible. Monitor for delirium. RASH Patient developed maculopapular rash primarily on her back, but also involving abdomen and thighs. Only new medication was clopidogrel. Received diphenhydramine and intravenous methylprednisolone with improvement of itching. Best to avoid anticholinergic medications as much as possible because of dementia. We will discharge on short steroid taper and cetirizine as needed. VTE PROPHYLAXIS Initially received SQ heparin. Changed prophylaxis to SCD's in light of petechial hemorrhage noted on MRI. Ambulate. DISPOSITION Expected return to [facility] for ongoing therapies. Primary care follow-up with Monica Xie PA-C. . Total time spent on discharge = 50 min. This includes examination of the patient, discharge planning, medication reconciliation, and communication with other providers. . Discharge Instructions Date of Service Mar 05, 2018. Admission Reason for Admission: weakness left lower extremity . Discharge Discharge Diagnosis / Problem: subacute right thalamic stroke Discharge Goals Goal(s): Improve function, Improve disease control Activity Recommendations Activity Level: Assistance Required Therapies: Physical Therapy, Occupational Therapy, Speech Therapy . Additional Information Patient informed of condition: Yes Advance Directives: Yes DNR: Yes Level of Care: Acute Rehab Communicable Disease: No Prognosis: Improving Ruff Catheter: No Instructions / Follow-Up Instructions / Follow-Up Please arrange for follow-up with PCP within 1 week of discharge from your facility. Thank you for receiving this patient in transfer. Please call if you have any questions. Davion Ashraf . Current Hospital Diet Patient's current hospital diet: AHA Diet (Heart Healthy) Discharge Diet Recommended Diet: AHA Diet (Heart Healthy) Pending Studies Studies pending at discharge: no Physician Orders On Transfer Special Precautions: fall precautions aspiration precautions . Vital Signs: routine. . Weigh: routine. . Additional Orders: VTE PROPHYLAXIS: SCD's (no anticoagulants because of petechial hemorrhage noted on MRI brain) . Laboratory Results Hemoglobin A1c Test 03/01/18 11:27 Range/Units Estimated Average Glucose 111 mg/dl Hemoglobin A1c 5.5 4.5-5.6 % Lipid Panel Test 03/02/18 05:28 Range/Units Triglycerides Level 68 0-150 mg/dl Cholesterol Level 80 0-200 mg/dl HDL Cholesterol 49 mg/dl Cholesterol/HDL Ratio 1.6 LDL Cholesterol, Calculated 17 mg/dl Medical Emergencies . Who to Call and When: Medical Emergencies: If at any time you feel your situation is an emergency, please call 911 immediately. . Non-Emergent Contact Non-Emergency issues call your: Primary Care Provider, Hospital Doctor, Neurologist . . "Provider Documentation" section prepared by Davion Ashraf. . Core Measure Problem Core Measures: Stroke Stroke Core Measures Reason no t-PA for Stroke: Treatment not indicated Reason no antithrom by day 2: Treatment provided - N/A Reason no antithrom at D/C: Treatment provided - N/A Reason no statin at D/C: Treatment provided - N/A Reason no anticoag w/a fib: Treatment not indicated . Additional Copies To Monica Xie P.A.
== END 2018-03-05 14:35 | DRG 65 ==
LOC: C.EDB 11:19 → C.2T 13:06 → ENRESERV 13:11
PROVIDERS: ADMIT Hospitalist; ATTEND Hospitalist
DX: I63.8 Other cerebral infarction (principal); I69.354 Hemiplegia and hemiparesis following cerebral infarction affecting left non-dominant side; I13.0 Hypertensive heart and chronic kidney disease with heart failure and stage 1 through stage 4 chronic kidney disease, or unspecified chronic kidney disease; I50.32 Chronic diastolic (congestive) heart failure; I69.322 Dysarthria following cerebral infarction; R29.705 NIHSS score 5; R91.8 Other nonspecific abnormal finding of lung field; L27.0 Generalized skin eruption due to drugs and medicaments taken internally; T45.8X5A Adverse effect of other primarily systemic and hematological agents, initial encounter; N18.3 Chronic kidney disease, stage 3 (moderate); F32.9 Major depressive disorder, single episode, unspecified; F03.90 Unspecified dementia, unspecified severity, without behavioral disturbance, psychotic disturbance, mood disturbance, and anxiety; E03.9 Hypothyroidism, unspecified; K21.9 Gastro-esophageal reflux disease without esophagitis; Z66 Do not resuscitate; E66.01 Morbid (severe) obesity due to excess calories; Z68.36 Body mass index [BMI] 36.0-36.9, adult; Z79.02 Long term (current) use of antithrombotics/antiplatelets; Z79.82 Long term (current) use of aspirin; Z79.899 Other long term (current) drug therapy; Z88.1 Allergy status to other antibiotic agents; Z88.5 Allergy status to narcotic agent